=== PATIENT | male | born 1965 | race Caucasian/White ===

== ENCOUNTER 2023-04-07 18:30 | Emergency (ER) | payer MEDICARE, SELFPAY ==
[2023-04-07 18:38] VITALS: BP 100/62; PULSE 65; RESP 20; O2SAT 98; BMI 21.0
[2023-04-07 19:04] VITALS: O2SAT 97
--- NOTE | 2023-04-07 19:05 | PC.NURSE ---
pt sent for SOB, pt denies SOB and states he want to go home. pt is intoxicated and admits to drinking all day. monitor on pt and will continue to monitor
[2023-04-07 19:22] VITALS: BP 148/76; PULSE 68; O2SAT 96
--- NOTE | 2023-04-07 19:31 | XR_ITS ---
The [address] [address] Patient Name: VERONICA VARGAS MRN: [id number] date: 1965 Sex: M Assigned Patient Location: ER Current Patient Location: ED.MAIN Accession/Order Number: [id number] Exam Date: 04/07/2023 20:15 Report Date: 04/07/2023 20:52 At the request of: IVA RABAGO Procedure: XR chest 1V EXAMINATION: XR chest 1V HISTORY: Cough COMPARISON: Chest x-rays 03/22/2023 TECHNIQUE: Portable chest FINDINGS: The lung parenchyma is free of consolidation or infiltrate. No pneumothorax or pleural effusion. The cardiac, mediastinal and hilar contours are normal. The visualized osseous structures exhibit no gross acute abnormality. Patient is status post open reduction internal fixation of the left clavicle IMPRESSION: No acute cardiopulmonary abnormality. Electronically authenticated by: MAXINE SANTOS Date: 04/07/2023 20:52
--- NOTE | 2023-04-07 19:31 | ECG_ITS ---
The [facility] Test Date: 2023-04-07 Pat Name: Chente Alamo Department: Room: - Gender: Male Ehs Manager: : 1965 Requested By: INES GARCIA Order Number: [id number] Reading MD: BETSY MOSS Measurements Intervals [place] Rate: 63 P: 43 CT: 150 QRS: 44 QRSD: 82 T: 54 QT: 436 QTc: 443 Interpretive Statements 1100 Sinus rhythm 2420 RSR (QR) in lead V1/V2, consistent with right ventricular conduction delay 9130 borderline ECG No previous ECG available for comparison Electronically Signed On 04-09-2023 5:40:37 EDT by BETSY MOSS
--- NOTE | 2023-04-07 19:38 | ED.GENADUL1 ---
HPI - General Adult General Chief complaint: Alcohol Stated complaint: INTOXICATION Time Seen by Provider: 04/07/23 19:31 Source: patient Mode of arrival: ambulance Limitations: no limitations History of Present Illness HPI narrative: patient has lung mass that was found last month. His brother gave history and patient would occ speak and nod in agreement. PET scan was ordered but was delayed due to concern for TB and lab results positive for pertussis. Patient reportedly quarantined and test result will resume at the end of this week. He drinks and smokes daily. Also uses marijuana. Today he was at the bar and started drinking around 11AM. His brother was called to the Bar because he was sitting at the Bar and was corona . Brother states his BP was low. Squad called and he was transferred to the hospital. He is now here and brother admits he does look better. Patient states he feels ok and wants to go home. He is denying chest pain, abdominal pain , fever or nausea Related Data Home Medications Medication Instructions Recorded Confirmed albuterol sulfate 90 mcg/actuation 2 inh inhalation Q4H 04/07/23 04/07/23 aerosol inhaler Allergies Allergy/AdvReac Type Severity Reaction Status Date / Time No Known Drug Allergies Allergy Verified 04/07/23 18:37 Review of Systems ROS Status of ROS 10 or more systems reviewed and unremarkable except as noted in history and below [facility] Medical History (Updated 04/07/23 @ 22:06 by Wilfredo Frias MD) Social History Smoking status: Heavy tobacco smoker Exam Constitutional Vital Signs - 24 hr 04/07/23 18:38 04/07/23 19:04 04/07/23 19:22 Pulse Rate 68 Pulse Rate [Monitor] 65 Pulse Rate [orthostatic lying] Pulse Rate [orthostatic sitting] Pulse Rate [orthostatic standing] Respiratory Rate 20 Blood Pressure 148/76 H Blood Pressure [Right Arm] 100/62 Blood Pressure [orthostatic lying] Blood Pressure [orthostatic sitting] Blood Pressure [orthostatic standing] Pulse Oximetry 98 97 96 Oxygen Delivery Method Room Air Room Air 04/07/23 20:27 04/07/23 20:28 04/07/23 21:44 Pulse Rate 68 Pulse Rate [Monitor] Pulse Rate [orthostatic lying] 74 Pulse Rate [orthostatic sitting] 84 Pulse Rate [orthostatic standing] 88 Respiratory Rate 16 Blood Pressure 125/84 H Blood Pressure [Right Arm] Blood Pressure [orthostatic lying] 129/68 H Blood Pressure [orthostatic sitting] 116/88 H Blood Pressure [orthostatic standing] 129/82 H Pulse Oximetry 98 98 Oxygen Delivery Method Room Air [facility] Common normals: normocephalic and head/scalp atraumatic Face and sinus: normal facial exam Eye Common normals: PERRL, EOMs intact bilaterally and conjunctivae normal Neck & C-Spine Common normals: full ROM and supple Chest Other: diminished breath sounds. Few scattered rhonchii Respiratory Common normals: normal respiratory effort and no use of accessory muscles Cardio Common normals: no JVD, regular rate, regular rhythm, S1 normal heart sound and S2 normal heart sound GI Common normals: Normal to inspection, nondistended, normoactive bowel sounds present Palpation: hepatomegaly Common normals: no CVA tenderness Back & Pelvis Common normals: no CVA tenderness, thoracic and lumbar spine normal to inspection and no thoracic nor lumbar tenderness Extremity Common normals: normal to inspection and no joint enlargement Other: trace ankle edema Neuro Common normals: oriented x3, CN's II-XII intact bilaterally, moves all extremities, no focal motor deficits and no sensory deficits noted Psych Appearance: grossly normal and well kempt Course Vital Signs Vital signs: Vital Signs Pulse Rate 65 04/07/23 18:38 Respiratory Rate 20 04/07/23 18:38 Blood Pressure 100/62 04/07/23 18:38 Pulse Oximetry 98 04/07/23 18:38 Oxygen Delivery Method Room Air 04/07/23 18:38 Pulse Rate 74 04/07/23 21:44 Respiratory Rate 16 04/07/23 20:27 Blood Pressure 129/68 H 04/07/23 21:44 Pulse Oximetry 98 04/07/23 20:28 Oxygen Delivery Method Room Air 04/07/23 20:28 Medical Decision Making MDM Narrative Medical decision making narrative: alcoholic. Sitting at the Bar on the bar stool. Brother states his BP was low at the bar. Arrives to the ER with normal BP. He states he feels well and wants to leave. IV was established by Squad but once he got here it was not functioning and he refused to have one re started. HIs orthostatics revealed tachycardia with normal BP. His labs reveal anemia with Hgb 8.9. MCV is normal. No history of GI bleed. Patient is standing in his room with very steady gait eager to go home. His brother is here to take him home. Discharged and encouraged to drink fluid and to follow up with his doctor Lab Data Labs: Lab Results 04/07/23 04/07/23 Range/Units 19:47 20:46 WBC 6.0 (4.0-11.0) 10^3/uL RBC 3.38 L (4.70-6.10) 10^6/uL Hgb 8.9 L (14.0-18.0) g/dL Hct 29.5 L (42.0-54.0) % MCV 87.3 (80.0-94.0) fL MCH 26.3 (25.9-34.0) pg MCHC 30.2 (29.9-35.2) g/dL RDW 16.9 H (11.0-15.0) % Plt Count 613 H (150-450) 10^3/uL MPV 9.6 (9.5-13.5) fL Neut % (Auto) 72.5 (43.0-75.0) % Lymph % (Auto) 9.7 L (20.5-60.0) % [place] % (Auto) 11.5 (1.7-12.0) % Eos % (Auto) 5.2 (0.9-7.0) % Baso % (Auto) 0.8 (0.2-2.0) % Neut # (Auto) 4.3 (1.4-6.5) 10^3/uL Lymph # (Auto) 0.6 L (1.2-3.8) 10^3/uL [place] # (Auto) 0.7 (0.3-0.8) 10^3/uL Eos # (Auto) 0.3 (0.0-0.7) 10^3/uL Baso # (Auto) 0.1 (0.0-0.1) 10^3/uL Sodium 136 (136-145) mmol/L Potassium 3.8 (3.5-5.1) mmol/L Chloride 101 (98-107) mmol/L Carbon Dioxide 22.8 (21.0-32.0) mmol/L Anion Gap 16.0 BUN 10.0 (7.0-18.0) mg/dL Creatinine 0.68 L (0.70-1.30) mg/dL Est GFR ( Amer) >60 (>=60) Est GFR (Non-Af Amer) >60 (>=60) BUN/Creatinine Ratio 14.7 Glucose 93 (74-106) mg/dL Calcium 8.0 L (8.5-10.1) mg/dL Magnesium 2.0 (1.8-2.4) mg/dL Total Bilirubin 0.1 L (0.2-1.0) mg/dL AST 22 (15-37) U/L ALT 23 (16-63) U/L Troponin I High Sens 6.9 (4.0-76.1) pg/mL Total Protein 7.1 (6.4-8.2) g/dL Albumin 3.2 L (3.4-5.0) g/dL Globulin 3.9 g/dL Albumin/Globulin Ratio 0.8 Urine Color Lt. yellow (YELLOW) Urine Clarity Clear (CLEAR) Urine pH 5.5 (5.0-9.0) Ur Specific [place] 1.025 (1.005-1.025) Urine Protein Negative (NEG/TRACE) mg/dL Urine Glucose (UA) Negative (NEGATIVE) mg/dL Urine Ketones Negative (NEGATIVE) mg/dL Urine Occult Blood Negative (NEGATIVE) Urine Nitrite Negative (NEGATIVE) Urine Bilirubin Negative (NEGATIVE) Urine Urobilinogen 0.2 (0.2-1.0) EU/dL Ur Leukocyte Esterase Negative (NEGATIVE) Urine RBC 0-2 (0-2) #/HPF Urine WBC None seen (NONE SEEN) #/HPF Ur Squamous Epith Cells None seen (NONE/RARE) #/LPF Discharge Plan Discharge Chief Complaint: Alcohol Clinical Impression: Acute dehydration, Alcoholic intoxication, Anemia, Malnutrition Patient Disposition: Home, Self-Care Prescriptions / Home Meds: No Action albuterol sulfate 90 mcg/actuation HFA aerosol inhaler 2 inh INHALATION Q4H Instructions: Dehydration (ED), Abuse of Alcohol (ED), Anemia (ED) Stand Alone Forms: Portal Instructions Referrals: INES GARCIA [Primary Care Provider] - 1 week Follow Up Appointments: follow up with your doctor next week to recheck your lab test and monitor your anemia
[2023-04-07 20:01] LABS: Basophils Absolute Auto 0.1 10^3/uL (0.0-0.1); Basophils Percent Auto 0.8 % (0.2-2.0); Eosinophils Absolute Auto 0.3 10^3/uL (0.0-0.7); Eosinophils Percent Auto 5.2 % (0.9-7.0); Hematocrit 29.5 % (42.0-54.0); Hemoglobin 8.9 g/dL (14.0-18.0); Immature Granulocytes Abs Auto 0.02 10^3/uL (0.00-0.03); Immature Granulocytes Pct Auto 0.3 % (0.0-0.5); Lymphocytes Absolute Auto 0.6 10^3/uL (1.2-3.8); Lymphocytes Percent Auto 9.7 % (20.5-60.0); Mean Corpuscular HGB Conc 30.2 g/dL (29.9-35.2); Mean Corpuscular Hemoglobin 26.3 pg (25.9-34.0); Mean Corpuscular Volume 87.3 fL (80.0-94.0); Mean Platelet Volume 9.6 fL (9.5-13.5); Monocytes Absolute Auto 0.7 10^3/uL (0.3-0.8); Monocytes Percent Auto 11.5 % (1.7-12.0); Neutrophils Absolute Auto 4.3 10^3/uL (1.4-6.5); Neutrophils Percent Auto 72.5 % (43.0-75.0); Platelet Count 613 10^3/uL (150-450); Red Blood Count 3.38 10^6/uL (4.70-6.10); Red Cell Distribution Width 16.9 % (11.0-15.0)
[2023-04-07 20:13] LABS: Ethanol 193 mg/dL
[2023-04-07 20:14] LABS: Alanine Aminotransferase 23 U/L (16-63); Albumin Globulin Ratio 0.8; Albumin Level 3.2 g/dL (3.4-5.0); Alkaline Phosphatase 87 U/L (46-116); Aspartate Amino Transferase 22 U/L (15-37); BUN Creatinine Ratio 14.7; Bilirubin Total 0.1 mg/dL (0.2-1.0); Carbon Dioxide 22.8 mmol/L (21.0-32.0); Chloride 101 mmol/L (98-107); Estimated GFR (African America >60 (>=60); Estimated GFR (Non-African Ame >60 (>=60); Globulin 3.9 g/dL; Glucose 93 mg/dL (74-106); Potassium 3.8 mmol/L (3.5-5.1); Sodium 136 mmol/L (136-145); Total Protein 7.1 g/dL (6.4-8.2); Troponin I High Sensitivity 6.9 pg/mL (4.0-76.1)
[2023-04-07 20:27] VITALS: BP 125/84; PULSE 68; RESP 16; O2SAT 98
[2023-04-07 20:28] VITALS: O2SAT 98
[2023-04-07 21:03] LABS: Bilirubin Urine NEGATIVE (NEGATIVE); Blood Urine NEGATIVE (NEGATIVE); Clarity Urine CLEAR (CLEAR); Color Urine LT. YELLOW (YELLOW); Glucose Urine UA NEGATIVE (NEGATIVE); Ketones Urine NEGATIVE (NEGATIVE); Leukocyte Esterase Urine NEGATIVE (NEGATIVE); Nitrite Urine NEGATIVE (NEGATIVE); Protein Urine NEGATIVE (NEG/TRACE); Specific Gravity Urine 1.025 (1.005-1.025); Urobilinogen Urine 0.2 EU/dL (0.2-1.0); pH Urine 5.5 (5.0-9.0)
[2023-04-07 21:04] LABS: Bacteria Urine NONE SEEN #/HPF (NONE SEEN); Cast Seen? NONE SEEN #/LPF (NONE SEEN); Crystals Seen? None Seen #/HPF (None Seen); Mucus Urine NONE SEEN (NONE SEEN); RBC Urine 0-2 #/HPF (0-2); Squamous Epithelial Cell Urine NONE SEEN #/LPF (NONE/RARE); WBC Urine NONE SEEN #/HPF (NONE SEEN)
[2023-04-07 21:44] VITALS: BP 116/88; BP 129/68; BP 129/82; PULSE 74; PULSE 84; PULSE 88
== END 2023-04-07 22:13 | disposition home or self-care (01) ==
PROVIDERS: Emergency Provider Internal Medicine; PCP Family Medicine
DX: E86.0 Dehydration (principal); F10.129 Alcohol abuse with intoxication, unspecified; F12.90 Cannabis use, unspecified, uncomplicated; D64.9 Anemia, unspecified; E46 Unspecified protein-calorie malnutrition; F17.210 Nicotine dependence, cigarettes, uncomplicated
CPT/HCPCS: 36415; 71045; 80053; 80320; 81001; 83735; 84484; 85025; 93005; 99285

== ENCOUNTER 2023-07-08 14:31 | Emergency (ER) | payer MEDICARE, SELFPAY ==
[2023-07-08 14:32] VITALS: BP 167/91; PULSE 78; RESP 18; TEMP 36.9; O2SAT 97; BMI 21.1
--- NOTE | 2023-07-08 14:51 | ED.EPISTAXI1 ---
HPI - Epistaxis General Chief Complaint: Epistaxis Stated Complaint: NOSE BLEED Time Seen by Provider: 07/08/23 14:35 Source: patient Mode of arrival: ambulance Limitations: no limitations History of Present Illness HPI Narrative: patient is a 58-year-old male presents to the Emergency Room for evaluation of nosebleed. Patient states he has had recurrent nosebleed out of the right right nostril for the past two days. Symptoms 1st yesterday that resolved with direct pressure, again this morning that resolved with pressure. Patient states the nose was bleeding for approximately forty minutes despite holding pressure when he called EMS. EMS applied a nasal clamp and the patient's bleeding resolved. He denies any current symptoms of feeling lightheaded or dizzy. States he felt slightly lightheaded while the bleeding was occurring but those symptoms have resolved. He denies any nasal trauma or injury. He denies any chest pain or shortness of breath, notes he lives by himself and called EMS when the bleeding did not stop. Patient appears in no distress on arrival. Review of past medical records note history of anemia Location: Yes right nares Onset/current episode: Yes minute(s) (40) Duration: Yes now resolved Pertinent past history: Yes hypertension and No history of heriditary bleeding disorder Context: Yes digital trauma, No warfarin use, No other anticoagulant use and No facial injury Associated symptoms: No fever Treatment prior to arrival: Yes nose pinching and Yes nasal clamp Related Data Home Medications Medication Instructions Recorded Confirmed albuterol sulfate 90 mcg/actuation 2 inh inhalation Q4H 04/07/23 04/07/23 aerosol inhaler Allergies Allergy/AdvReac Type Severity Reaction Status Date / Time No Known Drug Allergies Allergy Verified 04/07/23 18:37 Review of Systems ROS Constitutional Denies: fever, chills or change in weight Eyes Denies: change in vision Ears, nose, mouth, and throat Denies: throat pain or neck pain Cardiovascular Denies: chest pain Respiratory Denies: shortness of breath Gastrointestinal Denies: abdominal pain or nausea Musculoskeletal Denies: back pain or neck pain Integumentary/Breast Denies: rash Neurological Denies: headache Hematologic/Lymphatic Denies: easy bruising, easy bleeding or enlarged lymph nodes [facility] Medical History (Updated 07/08/23 @ 15:41 by WILLIAMS Gonzalez) Social History Smoking status: Heavy tobacco smoker Exam Narrative Exam Narrative: Nurses notes and vital signs reviewed and patient is not hypoxic. General: The patient appears well and in no apparent distress. Patient is resting comfortably on cart. Skin: Warm, dry, no pallor noted.no evidence of excessive bruising or bleeding Head: Normocephalic, atraumatic Neck: Supple, trachea mid-line, no tenderness, no lymphadenopathy Eye: Pupils are equal, round and reactive to light, EOMI Ears, Nose, Mouth, and Throat: TM are clear, normal light reflex, oral mucosa is moist, no posterior oropharynx erythema or hypertrophy, uvula is mid-line, no blood in the posterior pharynx, left nares with minimal dried blood, right Nares patient has evidence of abrasion on the anterior aspect of the distal nasal septum. Concerning for digital trauma. No active bleeding at this time. Cardiovascular: Regular Rate and Rhythm Respiratory: Patient is in no distress, no accessory muscle use, lungs are clear to auscultation, no wheezing, rales or rhonchi. Musculoskeletal: normal ROM, no tenderness, no swelling GI: Normal bowel sounds, no tenderness to palpation, no masses appreciated. No rebound, guarding, or rigidity noted. Neurological: A&O x4 Psychiatric: Cooperative Constitutional Vital Signs, click to edit/add: Last Vital Signs Temp 98.4 F 07/08/23 14:32 Pulse 78 07/08/23 15:18 Resp 20 07/08/23 15:18 BP 152/78 H 07/08/23 15:18 Pulse Ox 97 07/08/23 15:18 O2 Del Method Room Air 07/08/23 15:18 Course Vital Signs Vital signs: Vital Signs Temperature 98.4 F 07/08/23 14:32 Pulse Rate 78 07/08/23 14:32 Respiratory Rate 18 07/08/23 14:32 Blood Pressure 167/91 H 07/08/23 14:32 Pulse Oximetry 97 07/08/23 14:32 Oxygen Delivery Method Room Air 07/08/23 14:32 Temperature 98.4 F 07/08/23 14:32 Pulse Rate 78 07/08/23 15:18 Respiratory Rate 20 07/08/23 15:18 Blood Pressure 152/78 H 07/08/23 15:18 Pulse Oximetry 97 07/08/23 15:18 Oxygen Delivery Method Room Air 07/08/23 15:18 MDM - Epistaxis MDM Narrative Medical decision making narrative: patient reports recurrent nosebleed over the past forty-eight hours on the right nares . Denies injury. Possible for digital trauma with abrasion noted. No active bleeding at this time, nasal clip will be removed, Afrin applied two puff in right nare with observation and check cbc given history of anemia. patient was served for over an hour after direct pressure is applied with no return of bleeding. Patient reports feeling asymptomatic, recommend to avoid any digital trauma we discussed at length patient's alcohol abuse and tobacco abuse at bedside, history of anemia. Patient notes his family doctor recently retired and he has a new physician that he has not yet been in to see. He's been recommended to detox in the past but states he is not ready. Patient admits to drinking twelve pack of beer a day. We discussed his epistaxis. One to return if symptoms recur and how to hold direct pressure with use of Afrin. Patient agrees to return if symptoms worsen or new symptoms develop. He will contact his family doctor to set up an appointment. Patient's family present at bedside encouraging patient to help get better health. The patient is to followup with primary care physician in next 2-3 days or to return to the emergency department should any of the signs or symptoms worsen or new symptoms develop. Patient had questions answered. The patient agrees with the following Diagnosis and Treatment plan and the patient will be discharged home. Differential Diagnosis Differential diagnosis: Likely anterior epistaxis Medical Records Attestation: I reviewed the patient's medical records. Lab Data Attestation: I reviewed the patient's lab results. Labs: Lab Results 07/08/23 Range/Units 15:00 WBC 6.2 (4.0-11.0) 10^3/uL RBC 4.21 L (4.70-6.10) 10^6/uL Hgb 9.8 L (14.0-18.0) g/dL Hct 32.8 L (42.0-54.0) % MCV 77.9 L (80.0-94.0) fL MCH 23.3 L (25.9-34.0) pg MCHC 29.9 (29.9-35.2) g/dL RDW 23.2 H (11.0-15.0) % Plt Count 643 H (150-450) 10^3/uL MPV 9.4 L (9.5-13.5) fL Neut % (Auto) 67.3 (43.0-75.0) % Lymph % (Auto) 11.8 L (20.5-60.0) % [place] % (Auto) 17.0 H (1.7-12.0) % Eos % (Auto) 2.8 (0.9-7.0) % Baso % (Auto) 0.8 (0.2-2.0) % Neut # (Auto) 4.2 (1.4-6.5) 10^3/uL Lymph # (Auto) 0.7 L (1.2-3.8) 10^3/uL [place] # (Auto) 1.1 H (0.3-0.8) 10^3/uL Eos # (Auto) 0.2 (0.0-0.7) 10^3/uL Baso # (Auto) 0.1 (0.0-0.1) 10^3/uL Abs Immat Gran (auto) 0.02 (0.00-0.03) 10^3/uL Imm/Tot Granulo (auto) 0.3 (0.0-0.5) % Smoking Cessation Time spent discussing smoking cessation with patient: 3 to 10 minutes Patient Acknowledges Need for Cessation: Yes Discharge Plan Discharge Chief Complaint: Epistaxis Clinical Impression: Epistaxis, Anemia Patient Disposition: Home, Self-Care Time of Disposition Decision: 15:39 Condition: Good Prescriptions / Home Meds: No Action albuterol sulfate 90 mcg/actuation HFA aerosol inhaler 2 inh INHALATION Q4H Instructions: Nosebleed (ED), Anemia (ED) Stand Alone Forms: Portal Instructions Referrals: INES GARCIA [Primary Care Provider] - As soon as possible Sam Wilson MD [Physician] - As soon as possible
[2023-07-08 15:08] LABS: Basophils Absolute Auto 0.1 10^3/uL (0.0-0.1); Basophils Percent Auto 0.8 % (0.2-2.0); Eosinophils Absolute Auto 0.2 10^3/uL (0.0-0.7); Eosinophils Percent Auto 2.8 % (0.9-7.0); Hematocrit 32.8 % (42.0-54.0); Hemoglobin 9.8 g/dL (14.0-18.0); Immature Granulocytes Abs Auto 0.02 10^3/uL (0.00-0.03); Immature Granulocytes Pct Auto 0.3 % (0.0-0.5); Lymphocytes Absolute Auto 0.7 10^3/uL (1.2-3.8); Lymphocytes Percent Auto 11.8 % (20.5-60.0); Mean Corpuscular HGB Conc 29.9 g/dL (29.9-35.2); Mean Corpuscular Hemoglobin 23.3 pg (25.9-34.0); Mean Corpuscular Volume 77.9 fL (80.0-94.0); Mean Platelet Volume 9.4 fL (9.5-13.5); Monocytes Absolute Auto 1.1 10^3/uL (0.3-0.8); Neutrophils Absolute Auto 4.2 10^3/uL (1.4-6.5); Neutrophils Percent Auto 67.3 % (43.0-75.0); Platelet Count 643 10^3/uL (150-450); Red Blood Count 4.21 10^6/uL (4.70-6.10); Red Cell Distribution Width 23.2 % (11.0-15.0); White Blood Count 6.2 10^3/uL (4.0-11.0)
[2023-07-08 15:18] VITALS: BP 152/78; PULSE 78; RESP 20; O2SAT 97
[2023-07-08 16:15] VITALS: BP 139/69; PULSE 73; RESP 20; O2SAT 97
== END 2023-07-08 16:17 | disposition home or self-care (01) ==
PROVIDERS: Personal Emergency Response Attendant; Emergency Provider Emergency Medicine Emergency Medical Services; PCP Family Medicine
DX: R04.0 Epistaxis (principal); D64.9 Anemia, unspecified; I10 Essential (primary) hypertension; F17.210 Nicotine dependence, cigarettes, uncomplicated; F10.10 Alcohol abuse, uncomplicated
CPT/HCPCS: 36415; 85025; 99283

== ENCOUNTER 2024-07-04 14:31 | Emergency (ER) | payer MEDICARE, SELFPAY ==
[2024-07-04 14:36] VITALS: BP 162/94; PULSE 83; TEMP 36.5; O2SAT 96; BMI 21.9
--- NOTE | 2024-07-04 14:45 | XR_ITS ---
[address] [address] Patient Name: VERONICA VARGAS MRN: [id number] date: 1965 Sex: M Assigned Patient Location: ER Current Patient Location: ER Accession/Order Number: [id number] Exam Date: 07/04/2024 15:05 Report Date: 07/04/2024 15:24 At the request of: SAMUEL RIVERA Procedure: XR wrist LT min 3V EXAM: XR wrist LT min 3V, XR forearm LT 2V HISTORY: Injury COMPARISON: None. FINDINGS/IMPRESSION: 1. Minimally displaced transverse fracture of the distal radius. Mild posterior displacement measuring 2 mm. 2. Scapholunate and lunotriquetral intervals are maintained. 3. Normal alignment of the elbow joint. No elbow joint effusion. 4. No significant degeneration of the elbow joint or wrist. Electronically authenticated by: NADIYA COHN Date: 07/04/2024 15:24
--- NOTE | 2024-07-04 14:45 | XR_ITS ---
The [address] [address] Patient Name: VERONICA VARGAS MRN: [id number] date: 1965 Sex: M Assigned Patient Location: ER Current Patient Location: ER Accession/Order Number: [id number] Exam Date: 07/04/2024 15:05 Report Date: 07/04/2024 15:24 At the request of: SAMUEL RIVERA Procedure: XR forearm LT 2V EXAM: XR wrist LT min 3V, XR forearm LT 2V HISTORY: Injury COMPARISON: None. FINDINGS/IMPRESSION: 1. Minimally displaced transverse fracture of the distal radius. Mild posterior displacement measuring 2 mm. 2. Scapholunate and lunotriquetral intervals are maintained. 3. Normal alignment of the elbow joint. No elbow joint effusion. 4. No significant degeneration of the elbow joint or wrist. Electronically authenticated by: NADIYA COHN Date: 07/04/2024 15:24
--- NOTE | 2024-07-04 14:48 | ED.UPPEXIN1 ---
HPI HPI - Extremity Injury (Upper) General Chief Complaint: Extremity Injury, Upper Stated Complaint: UPPER EXTREMITY PAIN Time Seen by Provider: 07/04/24 14:45 Source: patient Mode of arrival: walk-in History of Present Illness HPI narrative: This patient is here with an injury to his left wrist and forearm. He admits to substantial use of alcohol last night. He does not really know much of the other details. He has had left shoulder surgery many years ago but did not injure his shoulder last night. He had no other collateral pain or discomfort. When I ask him to point to the area injury he points to his left wrist area. On examination Related Data Allergies Allergy/AdvReac Type Severity Reaction Status Date / Time No Known Drug Allergies Allergy Verified 04/07/23 18:37 Opioid HPI Opioid Management Most Recent Pain and Opioid Data: Last Pain Scale 0 07/08/23 14:48 PFSH [facility] Medical History (Updated 07/04/24 @ 15:31 by Arnold Peck MD) Mass of right lung ?R91.8 - Other nonspecific abnormal finding of lung field (ICD-10) COPD (chronic obstructive pulmonary disease) ?J44.9 - Chronic obstructive pulmonary disease, unspecified (ICD-10) Social History Smoking status: Heavy tobacco smoker Exam Narrative Exam Narrative: On examination awake alert oriented x 3 fully cooperative. He does have soft tissue swelling noted over the left wrist. Does not have any pain in the shoulder elbow. Some discomfort in the forearm. No deformity or discomfort in the hand itself. The rest of his head and neck structures upper and lower extremities show no other collateral damage or complaints. Constitutional Vital Signs, click to edit/add: Last Vital Signs Temp 97.7 F 07/04/24 14:36 Pulse 83 07/04/24 14:36 Resp 20 07/04/24 14:36 BP 162/94 H 07/04/24 14:36 Pulse Ox 96 07/04/24 14:36 O2 Del Method Room Air 07/04/24 14:36 Course Vital Signs Vital signs: Vital Signs Temperature 97.7 F 07/04/24 14:36 Pulse Rate 83 07/04/24 14:36 Respiratory Rate 20 07/04/24 14:36 Blood Pressure 162/94 H 07/04/24 14:36 Pulse Oximetry 96 07/04/24 14:36 Oxygen Delivery Method Room Air 07/04/24 14:36 Temperature 97.7 F 07/04/24 14:36 Pulse Rate 83 07/04/24 14:36 Respiratory Rate 20 07/04/24 14:36 Blood Pressure 162/94 H 07/04/24 14:36 Pulse Oximetry 96 07/04/24 14:36 Oxygen Delivery Method Room Air 07/04/24 14:36 MDM - Extremity Injury (Upper) MDM Narrative Medical decision making narrative: Final x-ray report is pending but I suspect there is a nondisplaced fracture of the distal radius. We will place him in a immobilizing cock up splint have him follow-up with our orthopedist. Discharge Plan Discharge Stand Alone Forms: Work/School Release, Portal Instructions Chief Complaint: Extremity Injury, Upper Clinical Impression: Fracture of wrist Patient Disposition: Home, Self-Care Time of Disposition Decision: 15:30 Print Language: Estonian Additional Instructions: Ice for 40 hours/wear splint until followed up with orthopedist Dr. Oliveira/Torrosamaria for pain Referrals: INES GARCIA [Primary Care Provider] - 1 week
== END 2024-07-04 16:02 | disposition home or self-care (01) ==
PROVIDERS: Emergency Provider Emergency Medicine Emergency Medical Services; PCP Family Medicine
DX: S52.502A Unspecified fracture of the lower end of left radius, initial encounter for closed fracture (principal); X58.XXXA Exposure to other specified factors, initial encounter; F17.200 Nicotine dependence, unspecified, uncomplicated
CPT/HCPCS: 73090; 73110; 99283

== ENCOUNTER 2025-09-26 12:50 | Emergency (ER) | payer MEDICARE, SELFPAY ==
--- OUTSIDE RECORDS SUMMARY | 2024-07-13 06:00 | XMS_ITS ---
Author Organization [facility] Address [address] [place] [address] Care Team Providers Care Family Service Assistant Name Role Phone Ruddy Yoder DO Primary Care Provider Raza Zabala Unavailable [phone] REASON FOR VISIT TB ER f/u LT wrist fx Encounters Encounter Location Date Provider Diagnosis [facility] Office [address] [place] [address] [place] [address] 07/13/2024 Raza Oliveira Plan Of Treatment No Information Progress Notes * VERONICA VARGAS GDOB:[birth year] (60 yo M)Acc No.[id number]:07/13/2024 Patient:?VERONICA VARGAS :?Raza Oliveira, MDDOB:1965???Age:59 Y ???Sex:MaleDate:07/13/2024hone:[phone]:[address], [id number]:Ruddy Yoder DO Subjective: * Chief Complaints: * 1 . [facility] ER f/u LT wrist fx. * Medical History: Objective: * Vitals: Assessment: Plan: * Treatment: Forms: * Images: * Electronic signature of Raza Oliveira MD on 09/26/2025 at 02:42 PM ESTSign off status: Pending * Provider: Luci Oliveira MD Date: 0 07/13/2024 Generated for Printing/Faxing/eTransmitting on:?09/26/2025 02:42 PM EST
--- OUTSIDE RECORDS SUMMARY | 2024-08-19 09:15 | XMS_ITS ---
Author Organization [facility] Address [address] [place] [address] Care Team Providers Care Shellfish Grower Name Role Phone Ruddy Yoder DO Primary Care Provider Raza Zabala Unavailable [phone] REASON FOR VISIT lt distal radius fx, 3 week ck Encounters Encounter Location Date Provider Diagnosis [facility] [facility] [address] [address] 08/19/2024 Raza Oliveira Plan Of Treatment Pending Test Test Name Order Date SCC- WRIST 3 VIEW LEFT [id number] 08/19/2024 Progress Notes * VERONICA VARGAS GDOB:[birth year] (60 yo M)Acc No.[id number]:08/19/2024 Patient:?ALICIAVERONICA HORN :?Raza Oliveira, MDDOB:1965???Age:59 Y ???Sex:MaleDate:08/19/2024hone:[phone]:[address], [id number]:Ruddy Yoder DO Subjective: * Chief Complaints: * 1 . Lt distal radius fx, 3 week ck. * Medical History: Objective: * Vitals: Assessment: Plan: * Treatment: ?Imaging: SCC- WRIST 3 VIEW LEFT [id number] * Procedure Codes: 7 3110 X-ray Wrist, 3 view Forms: * Images: * Electronic signature of Raza Oliveira MD on 09/26/2025 at 02:42 PM ESTSign off status: Pending * Provider: Luci Oliveira MD Date: 1 Generated for Printing/Faxing/eTransmitting on:?09/26/2025 02:42 PM EST
[2025-09-26 13:12] VITALS: BP 129/89; PULSE 102; TEMP 36.9; O2SAT 95; BMI 20.4
--- NOTE | 2025-09-26 13:17 | XR_ITS ---
The [address] [address] Patient Name: VERONICA VARGAS MRN: [id number] date: 1965 Sex: M Assigned Patient Location: ED.MAIN Current Patient Location: ER Accession/Order Number: [id number] Exam Date: 09/26/2025 14:00 Report Date: 09/26/2025 14:22 At the request of: OSMEL MENDEZ MD Procedure: XR shoulder RT min 2V RIGHT SHOULDER - - 2 views CLINICAL HISTORY: fall COMPARISON: None FINDINGS: Mildly displaced fracture of the right humeral neck. Mild degenerative changes involving the AC joint. XR/XR shoulder RT min 2V IMPRESSION: MILDLY DISPLACED FRACTURE INVOLVING THE RIGHT HUMERAL NECK. Impression dictated by: Ricardo Baer Jr. DMelecioOMelecio 09/26/2025 2:22 PM Dictation Location: [place] [address] Electronically authenticated by: [id number] Y Date: 09/26/2025 14:22
--- NOTE | 2025-09-26 14:14 | XR_ITS ---
The [address] [address] Patient Name: VERONICA VARGAS MRN: [id number] date: 1965 Sex: M Assigned Patient Location: ED.MAIN Current Patient Location: ER Accession/Order Number: [id number] Exam Date: 09/26/2025 16:00 Report Date: 09/26/2025 16:30 At the request of: OSMEL MENDEZ MD Procedure: XR forearm RT 2V RIGHT ELBOW - 2 views, right forearm 2 views right humerus 2 views CLINICAL HISTORY: Fall with right shoulder elbow and forearm pain. COMPARISON: None FINDINGS: Right elbow:Positioning is suboptimal. No elbow joint effusion. No acute bony process is seen. Right forearm: Suboptimal positioning. No focal soft tissue abnormality. No acute bony process is seen. Right humerus: Mildly displaced fracture involving the right humeral neck. XR/XR humerus RT IMPRESSION: MILDLY DISPLACED FRACTURE INVOLVING THE RIGHT HUMERAL NECK. NO DEFINITIVE FRACTURE SEEN INVOLVING THE RIGHT ELBOW OR FOREARM. Impression dictated by: Ricardo Baer Jr. DMelecioOMelecio 09/26/2025 4:30 PM Dictation Location: [email or web address] Electronically authenticated by: [id number] Y Date: 09/26/2025 16:30
--- NOTE | 2025-09-26 14:14 | XR_ITS ---
The [address] [address] Patient Name: VERONICA VARGAS MRN: [id number] date: 1965 Sex: M Assigned Patient Location: ER Current Patient Location: ER Accession/Order Number: [id number] Exam Date: 09/26/2025 16:00 Report Date: 09/26/2025 16:30 At the request of: OSMEL MENDEZ MD Procedure: XR forearm RT 2V RIGHT ELBOW - 2 views, right forearm 2 views right humerus 2 views CLINICAL HISTORY: Fall with right shoulder elbow and forearm pain. COMPARISON: None FINDINGS: Right elbow:Positioning is suboptimal. No elbow joint effusion. No acute bony process is seen. Right forearm: Suboptimal positioning. No focal soft tissue abnormality. No acute bony process is seen. Right humerus: Mildly displaced fracture involving the right humeral neck. XR/XR elbow RT 2V IMPRESSION: MILDLY DISPLACED FRACTURE INVOLVING THE RIGHT HUMERAL NECK. NO DEFINITIVE FRACTURE SEEN INVOLVING THE RIGHT ELBOW OR FOREARM. Impression dictated by: Manav Huynh Jr.OMelecio 09/26/2025 4:30 PM Dictation Location: [facility] Electronically authenticated by: [id number] Y Date: 09/26/2025 16:30
--- NOTE | 2025-09-26 14:14 | XR_ITS ---
The [address] [address] Patient Name: VERONICA AVRGAS MRN: [id number] date: 1965 Sex: M Assigned Patient Location: ED.MAIN Current Patient Location: ER Accession/Order Number: [id number] Exam Date: 09/26/2025 16:30 Report Date: 09/26/2025 16:30 At the request of: OSMEL MENDEZ MD Procedure: XR forearm RT 2V RIGHT ELBOW - 2 views, right forearm 2 views right humerus 2 views CLINICAL HISTORY: Fall with right shoulder elbow and forearm pain. COMPARISON: None FINDINGS: Right elbow:Positioning is suboptimal. No elbow joint effusion. No acute bony process is seen. Right forearm: Suboptimal positioning. No focal soft tissue abnormality. No acute bony process is seen. Right humerus: Mildly displaced fracture involving the right humeral neck. XR/XR forearm RT 2V IMPRESSION: MILDLY DISPLACED FRACTURE INVOLVING THE RIGHT HUMERAL NECK. NO DEFINITIVE FRACTURE SEEN INVOLVING THE RIGHT ELBOW OR FOREARM. Impression dictated by: Ricardo Baer Jr., D.O. 09/26/2025 4:30 PM Dictation Location: [place] [address] Electronically authenticated by: [id number] Y Date: 09/26/2025 16:30
--- OUTSIDE RECORDS SUMMARY | 2025-09-26 14:42 | XMS_ITS | Clinical Summary ---
Author Organization [facility] Address [address] [place] [address] Care Team Providers Care Stress Engineer Name Role Phone Unavailable Primary Care Provider Unavailabl e Social History Tobacco UseTypesPacks/DayYears UsedDateSmoking Tobacco: Never AssessedSex and Gender InformationValueDate RecordedSex Assigned at BirthNot on fileLegal Sex Male01/16/2023 11:33 PM EDTGender IdentityNot on fileSexual OrientationNot on file Last Filed Vital Signs Vital SignReadingTime TakenCommentsBlood Pressure--Pulse--Temperature-- Respiratory Rate--Oxygen Saturation--Inhaled Oxygen Concentration--Kajzeb88.2 kg (126 lb)01/09/2022 12:00 PM EOSNvyhpx531.2 cm (5' 7 )01/09/2022 12:00 PM ESTBody Mass Index19.7301/09/2022 12:00 PM EST Plan of Treatment Not on file
--- OUTSIDE RECORDS SUMMARY | 2025-09-26 14:42 | XMS_ITS | CCD ---
Author Organization [facility] Care Team Providers Care Bi Lead Name Role Phone Guillermina Clark Unavailable SAMSA ., ROSA MARIA Admitting Unavailable SAMSA ., ROSA MARIA Attending Unavailable WALKER ., DR ELVIRA Borges Primary Care Unavailable SAMSA ., ROSA MARIA Consulting Unavailable WALKER ., DR ELVIRA Borges Admitting Unavailable WALKER ., DR ELVIRA Borges Attending Unavailable WALKER ., DR ELVIRA Borges Consulting Unavailable WALKER ., DR ELVIRA Borges Primary Care Unavailable ZIEBTJ, DR BRANDY Bailey Consulting Unavailable WALKER ., DR ELVIRA Borges Admitting Unavailable WALKER ., DR ELVIRA Borges Attending Unavailable WALKER ., DR ELVIRA Borges Primary Care Unavailable OVIDIO ., TASHA Admitting Unavailable WALKER ., DR ELVIRA Borges Primary Care Unavailable OVIDIO ., TASHA Attending Unavailable OVIDIO ., TASHA Consulting Unavailable WALKER ., DR ELVIRA Borges Admitting Unavailable WALKER ., DR ELVIRA Borges Attending Unavailable WALKER ., DR ELVIRA Borges Consulting Unavailable WALKER ., DR ELVIRA Borges Primary Care Unavailable SAMSA ., ROSA MARIA Attending Unavailable SAMSA ., ROSA MARIA Admitting Unavailable MELIA, DR BRANDY Bailey Consulting Unavailable WALKER ., DR ELVIRA Borges Primary Care Unavailable SAMSA ., ROSA MARIA Consulting Unavailable Stefano NUNEZ Attending Unavailable ELVIRA WALKER Attending Unavailable Trinity Hull Attending Unavailable Trinity Hull Referring Unavailable Stefano NUNEZ Attending Unavailable Allergies Allergy ClassificationReported Allergen(s)Allergy TypeDate of OnsetReaction(s) Facility (1 source)No Known Medication Allergies; Translations: [No Known Medication Allergies]Propensity to adverse reactions (disorder)[facility] Repository Medications Current Medications MedicationDrug Class(es)DatesSig (Normalized)Sig (Original)[id number] 200 actuat albuterol 0.09 mg/actuat metered dose inhaler (1 source)beta2-Adrenergic AgonistStart: 73-44-6069ikzs 2 puff(s) by inhalation four times daily as neededAlbuterol Sulfate HFA 108 (90 Base) MCG/ACT 2 puffs Inhalation 4 times a day prn Nov, Activeazithromycin 250 mg oral tablet (1 source)Macrolide AntimicrobialStart: 54-68-2177Tltqhbofvbqr 250 MG 2 tablet on the first day, then 1 tablet daily for 4 days Orally Once a day for5 day(s) Nov, Activebenzonatate 100 mg oral capsule (1 source)Non-narcotic AntitussiveStart: 35-70-7211svll 1 capsule by mouth every eight hoursTessalon Perles 100 MG 1 capsule as needed Orally Three times a day for 10 day(s) Nov, ActivepredniSONE 20 mg oral tablet (1 source)Start: 20-26-1774uohy 1 tablet by mouth every twelve hourspredniSONE 20 MG 1 tablet Orally 2 times a day for 5 day(s) Nov, Active Problems Active Problems Problem ClassificationProblemDateDocumented DateEpisodic/ChronicAllergic reactions (1 source)Dermatitis, unspecified; Translations: [DERMATITIS UNSPECIFIED]Onset: 14-71-2943LlqpczwsZtrgta (1 source)Unspecified asthma with status asthmaticus; Translations: [UNS ASTHMA W/STATUS ASTHMATICUS]Onset: 96-80-6594KdclaelIipdontw of urinary tract (1 source)Personal history of urinary calculi; Translations: [PERSONAL HISTORY OF URINARY CALCULI]Onset: 30-23-4206KmmkpgrrAlogawt obstructive pulmonary disease and bronchiectasis (4 sources)Chronic obstructive pulmonary disease, unspecified; Translations: [COPD UNSPECIFIED]Onset: 79-79-6525OeastphZtqcoyk obstructive pulmonary disease and bronchiectasis (1 source)Bronchitis, not specified as acute or chronicEpisodicDeficiency and other anemia (1 source)Anemia, unspecified; Translations: [ANEMIA UNSPECIFIED]Onset: 82-92-7120RbxzvjgvEcrap aftercare (1 source)Other terminal worker (current) drug therapy; Translations: [OTH RETIREMENT CURRENT DRUG THERAPY]Onset: 06-49-9128VggnrcwjKfocv lower respiratory disease (4 sources)Solitary pulmonary nodule; Translations: [SOLITARY PULMONARY NODULE] Onset: 12-10-2756SjsrtozyGvaqk lower respiratory disease (1 source)Shortness of breath; Translations: [SHORTNESS OF BREATH]Onset: 72-52-0662OyzpzckpCdzid skin disorders (3 sources)Rash and other nonspecific skin eruption; Translations: [RASH OTH NONSPECIFIC SKIN ERUPTION]Onset: 26-32-2516WxysvcszEyspinxyj-related disorders (5 sources)Nicotine dependence, cigarettes, with unspecified nicotine-induced disorders; Translations: [Nicotine dependence, cigarettes, uncomplicated]Onset: 42-77-3131XltaecwHspoxsmrtzfm (1 source)COUGH, UNSPECIFIED; Translations: [COUGH, UNSPECIFIED]Onset: 12-05-2022 Past or Other Problems Problem ClassificationProblemDateDocumented DateEpisodic/ChronicMalaise and fatigue (4 sources)Other fatigue; Translations: [OTHER FATIGUE]Onset: 94-69-6372Uvddtgsq Results Test NameValueInterpretationReference RangeFacilityLab Reportson 07-49-8242Oar [id number]#1.00CD:[address] [place], [place] [address]Lab Reportson 50-35-2770Uoq Reports [id number]#1.00CD:[address] [place], [place] [address]Consultation Noteon 13-51-1940Qhwoukngbbnx Note [id number]#1.00CD:[address] [place], [place] [address]HISTOPLASMA GALACTOMANNAN AG URINEon 41-57-8119Aswevybjdlw Gal'beata Ag <0.5Normal<0.5 ng/mLThe [facility] CenterComment on above:Performed By: #### SEDR #### [facility] [address] [place] [address] Dr. Nadiya StanfordLab Reportson 59-80-4780Cnj Reports [id number]#1.00CD:[facility] [id number]#1.00CD:[facility] HealthNoToledo HospitalLab Reports [id number]#1.00CD:[address] [place] [address] [id number]#1.00CD:[address] [place] [address] Reportson 64-45-9450Hou Reports [id number]#1.00CD:[address] [place], [place] [address]FUNGAL AB QUANTITAIVE DOUBLE IMMUNODIFFUon 47-48-4659Qegelhkiran flavus NegativeNormalNeg:<1:1Wilson HealthComment on above:Performed By: #### SEDR #### [facility] [address] [place] [address] Dr. Nadiya StanfordAspergillus fumigatusNegativeNormalNeg:<1:1[facility] Comment on above:Performed By: #### SEDR #### [facility] [address] [place] [address] Dr. Nadiya Yeagerergillus nigerNegativeNormalNeg:<1:1[facility] Comment on above:Performed By: #### SEDR #### [facility] [address] [place] [address] Dr. Nadiya StanfordBlastomycesNegativeNormalNeg:<1:1Wilson HealthComment on above:Performed By: #### SEDR #### [facility] [address] [place] [address] Dr. Nadiya StanfordCOCCIDIODES IGG/IGM AB BY IFAon 00-37-9470Bemkwqtyyro Ab, IgG EIA 0.2 EIA UnitsNoChillicothe HospitalComment on above:Result Comment: Negative <1.0 Indeterminate 1.0-1.4 Positive >1.4Performed By: #### COCCABS #### [facility] [address] [place] [address] Dr. Nadiya Oteroccidiodes Ab, IgM, EIA0.2 EIA [facility] Comment on above:Result Comment: Negative <1.0 Indeterminate 1.0-1.4 Positive >1.4Performed By: #### COCCABS #### [facility] [address] [place] [address] Dr. Nadiya Dasilva. PERTUSSIS AB IGA/IGG/IGMon 03-14-2023 pertussis IgA Ab2.2 indexInvalid Interpretation Code0.0-0.9Wilson HealthComment on above: Result Comment: Client Requested Flag Negative <1.0 Borderline 1.0 - 1.1 Positive >1.1Performed By: #### BRDPRT #### [facility] [address] [place] [address] Dr. Nadiya Dasilva pertussis IgG Ab3.49 indexInvalid Interpretation Code0.00-0.94 The [facility] CenterComment on above:Result Comment: Client Requested Flag Negative <0.95 Equivocal 0.95 - 1.04 Positive >1.04Performed By: #### BRDPRT #### [facility] [address] [place] [address] Dr. Nadiya Dasilva pertussis IgM Ab1.8 indexCritically high0.0-0.9Wilson HealthComment on above:Result Comment: Negative <1.0 Borderline 1.0 - 1.1 Positive >1.1Performed By: #### BRDPRT #### [facility] [address] [place] [address] Dr. Nadiya SinghMA CAP AB QUANT DIDon 83-59-1081Psptdkdvrbe Mycelial CF Ab.NegativeNormalNeg:<1:2Wilson HealthComment on above:Performed By: #### HISTDID #### [facility] [address] [place] [address] Dr. Nadiya Wilhelmtopmargama Yeast CF Ab1:2NormalNeg:<1:2[facility] Comment on above:Performed By: #### HISTDID #### [facility] [address] [place] [address] Dr. Nadiya Ch TB GOLD PLUSon 34-53-2354UcnquhZONYZ CriteriaComOhioHealth Grant Medical CenterComment on above:Result Comment: QuantiFERON-TB Gold Plus is a qualitative indirect test for M tuberculosis infection (including disease) and is intended for use in conjunction with risk assessment, radiography, and other medical and diagnostic evaluations. The QuantiFERON-TB Gold Plus result is determined by subtracting the Nil value from either TB antigen (Ag) value. The Mitogen tube serves as a control for the test.Performed By: #### QNTTB #### [facility] [address] [place] [address] Dr. Nadiya Ch IncubationIncubation performed.[facility]Comm[facility] [place] on above:Performed By: #### QNTTB #### [facility] [address] [place] [address] Dr. Nadiya Ch Mitogen Value0.52 IU/mLNGrant Hospital Comment on above:Performed By: #### QNTTB #### [facility] [address] [place] [address] Dr. Nadiya Ch Nil Value0.07 IU/mLNGrant HospitalComment on above:Performed By: #### QNTTB #### [facility] [address] [place] [address] Dr. Nadiya Ch TB1 Ag Value0.06 IU/mLNGrant Hospital Comment on above:Performed By: #### QNTTB #### [facility] [address] [place] [address] Dr. Nadiya Ch TB2 Ag Value0.06 IU/mLNGrant Hospital Comment on above:Performed By: #### QNTTB #### [facility] [address] [place] [address] Dr. Nadiya Ch-TB Tres PlusIndeterminateAbnormalNegativeWayne Hospital on above:Result Comment: Mitogen (positive control) gave low response. This may occur due to suboptimal pre-analytical handling. Chemiluminescence immunoassay methodologyPerformed By: #### QNTTB #### [facility] [address] [place] [address] Dr. Nadiya Morgan EIA W/REFLEX 5 BIOMARKERSon 52-90-4401YQR DirectNegative NormalNegativeWilson HealthComment on above:Performed By: #### SEDR #### [facility] [address] [place] [address] Dr. aNdiya StanfordCYCLIC CITRULLINATED PEPTIDE AB (CCP)on 97-09-4545FEQ Antibodies IgG/IgA6 unitsNormal0-19The [facility] CenterComment on above:Result Comment: Negative <20 Weak positive 20 - 39 Moderate positive 40 - 59 Strong positive >59Performed By: #### SEDR #### [facility] [address] [place] [address] Dr. Nadiya Johnson Reportson 28-54-5458Fhy Reports [id number]#1.00CD:[address] [place], [place] [address]RHEUMATOID FACTORon 13-00-3577EP Latex Turbid.24.1 IU/mLCritically high <14.0The [facility] CenterComment on above:Performed By: #### RF #### [facility] [address] [place] [address] Dr. Nadiya StanfordSED RATE WESTERGRENon 82-46-2465IYH RATE34 mm/hrCritically high <=20The [facility] CenterComment on above:Performed By: #### SEDR #### [facility] [address] [place] [address] Dr. Nadiya StanfordConsultation Noteon 45-63-8281Pcjezffblkwt Note [id number]#1.00CD:[address] [place], [place] [address]RAD - CT Reporton 61-00-0385PKU - CT Report [id number]#1.00CD:[address] [place], [place] [address]CT LUNG CANCER SCREENINGon 15-97-0831UW LUNG CANCER SCREENINGEXAMINATION: CT LUNG CANCER SCREENING HISTORY: Nicotine dependence COMPARISON: No relevant comparison available. TECHNIQUE: Axial, Coronal, and Sagittal images were created without the administration of IV contrast material. Dose reduction techniques were achieved by using automated exposure control and/or adjustment of mA and/or kV according to patient size and/or use of iterative reconstruction technique. FINDINGS: LUNGS: 4 mm nodule within anterior right middle lobe near minor fissure. 10 x 10 x 4 mm thin spiculated opacity within lateral left costophrenic angle. Moderate emphysematous changes throughout. PLEURA: No mass, effusion, or pneumothorax. VASCULATURE: No abnormality. NAKUL: No mass or pathologic adenopathy. MEDIASTINUM: No mass or pathologic adenopathy. CARDIAC: No enlargement, pericardial thickening, or significant calcification. AORTA: No aneurysm or dissection. CHEST WALL: A few axillary lymph nodes bilaterally, not overtly suspicious. BONES: No bone lesion or fracture. LIMITED ABDOMEN: No suspicious findings. Limited images of the upper abdomen. OTHER: Negative. IMPRESSION: 1. Lung-RADS Category 4A- Suspicious. Findings for which additional diagnostic testing and/ or tissue sampling is recommended. 3 month LDCT; PET/CT may be used when there is a >= 8 mm solid component. 2. Follow-up CT chest in 3 months is recommended. Electronically authenticated by: BRANDY CÁRDENAS Date: 2023-02-21 14:31NormCleveland Clinic Union Hospital AUTO DIFFon 24-27-0106WEVZ #0.1 103/ulNormal0.0-0.1Wilson HealthComment on above:Performed By: #### CBC #### [facility] [address] [place] [address] Dr. Nadiya Rosenbergphils/100 WBC (Bld)0.7 %Normal0.2-2.0The [facility] Comment on above:Performed By: #### CBC #### [facility] [address] [place] [address] Dr. Nadiya Jean #1.0 103/ulCritically high0.0-0.7The [facility] CenterComment on above:Performed By: #### CBC #### [facility] [address] [address] [address] Nadiya Anneosinophils/100 WBC (Bld)10.1 %Critically high0.9-7.0The [facility] CenterComment on above:Performed By: #### CBC #### [facility] [address] [place] [address] Dr. Nadiya Annerythrocyte distribution width (RBC) [Ratio]18.2 %Critically high 11.0-15.0The [facility] CenterComment on above:Performed By: #### CBC #### [facility] [address] [place] [address] Dr. Nadiya StanfordHematocrit (Bld) [Volume fraction]35.8 %Critically low42.0-54.0 The [facility] CenterCommclaren northern [place] on above:Performed By: #### CBC #### [facility] [address] [place] [address] Dr. Nadiya StanfordHemoglobin (Bld) [Mass/Vol]11.6 g/dLCritically low14.0-18.0The [facility] Community Hospitalment on above:Performed By: #### CBC #### [facility] [address] [place] [address] Dr. Nadiya Owen #0.05 10e3/ulCritically high0.00-0.03[facility] Comment on above:Performed By: #### CBC #### [facility] [address] [place] [address] Dr. Nadiya Owen %0.5 %Normal0.0-0.5The [facility] on above: Performed By: #### CBC #### [facility] [address] [place] [address] Dr. Nadiya CollierMPH #0.9 103/ulCritically low1.2-3.8The [facility] Comment on above:Performed By: #### CBC #### [facility] [address] [place] [address] Dr. Nadiya Colliermphocytes/100 WBC (Bld)9.2 %Critically low20.5-60.0The [facility] CenterComment on above:Performed By: #### CBC #### [facility] [address] [address] [address] Nadiya Ricketts DIFF REQNONormalThe [facility] CenterComment on above: Performed By: #### CBC #### [facility] [address] [place] [address] Dr. Nadiya Hernandez (RBC) [Entitic mass]29.8 rvBjtwhr01.9-34.0The [facility] CenterComment on above:Performed By: #### CBC #### [facility] [address] [place] [address] Dr. Nadiya Hernandez (RBC) [Mass/Vol]32.4 g/gKGatioa20.9-35.2The [facility] CenterComment on above:Performed By: #### CBC #### [facility] [address] [place] [address] Dr. Nadiya HernandezV (RBC) [Entitic vol]92.0 hUEpoujk48.0-94.0The [facility] CenterComment on above:Performed By: #### CBC #### [facility] [address] [place] [address] Dr. Nadiya Green #1.3 103/ulCritically high0.3-0.8ThMercy Health Allen Hospital Comment on above:Performed By: #### CBC #### [facility] [address] [place] [address] Dr. Nadiya Martinezocytes/100 WBC (Bld)13.3 %Critically high1.7-12.0Wilson HealthComment on above:Performed By: #### CBC #### [facility] [address] [place] [address] Dr. Nadiya Shin #6.6 103/ulCritically high1.4-6.5ThMercy Health Allen Hospital Comment on above:Performed By: #### CBC #### [facility] [address] [place] [address] Dr. Nadiya Marroquinutrophils/100 WBC (Bld)66.2 %Vkwxjg90.0-75.0The [facility] CenterComment on above:Performed By: #### CBC #### [facility] [address] [address] [address] Nadiya StanfordPlatelet mean volume (Bld) [Entitic vol]9.0 fLCritically low 9.5-13.5The [facility] CenterComment on above:Performed By: #### CBC #### [facility] [address] [place] [address] Dr. Nadiya StanfordPLT843 103/ulCritically ygog953-083Thm [facility] CenterComment on above:Performed By: #### CBC #### [facility] [address] [place] [address] Dr. Nadiya StanfordRBC3.89 106/ulCritically low4.70-6.10The [facility] CenterComment on above:Performed By: #### CBC #### [facility] [address] [place] [address] Dr. Nadiya StanfordWBC10.0 103/ulNormal4.0-11.0The [facility] CenterComment on above:Performed By: #### CBC #### [facility] [address] [place] [address] Dr. Nadiya StanfordPROF 14(COMP METB)on 54-42-6988Raldpyy [Mass/Vol]2.9 g/dL Critically low3.4-5.0The [facility] CenterComment on above:Performed By: #### CMP #### [facility] [address] [place] [address] Dr. Nadiya StanfordAlbumin/Globulin [Mass ratio]0.8 {ratio}NormalThe [facility] Health CenterCommclaren northern [place] on above:Performed By: #### CMP #### [facility] [address] [place] [address] Dr. Nadiya Rogers [Catalytic activity/Vol]98 U/SOajpew21-223Zdv [facility] CenterComment on above:Performed By: #### CMP #### [facility] [address] [place] [address] Dr. Nadiya Styles [Catalytic activity/Vol]17 U/WNvoyez80-20Pyr [facility] CenterComment on above:Performed By: #### CMP #### [facility] [address] [address] [address] Nadiya Moore gap [Moles/Vol]15.0 mmol/LNormalThe [facility] Comment on above:Performed By: #### CMP #### [facility] [address] [address] [address] Nadiya StanfordAST [Catalytic activity/Vol]26 U/XXkviqs31-41Ruu [facility] CenterComment on above:Performed By: #### CMP #### [facility] [address] [address] [address] Nadiya StanfordBilirubin [Mass/Vol]0.2 mg/dLNormal0.2-1.0The [facility] Comment on above:Performed By: #### CMP #### [facility] [address] [address] [address] Nadiya StanfordCalcium [Mass/Vol]8.2 mg/dLCritically low8.5-10.1The [facility] CenterComment on above:Performed By: #### CMP #### [facility] [address] [address] [address] Nadiya StanfordChloride [Moles/Vol]105 mmol/LWsicwp15-264Bex [facility] Comment on above:Performed By: #### CMP #### [facility] [address] [address] [address] Nadiya StanfordCO2 [Moles/Vol]23.2 mmol/OUocvof15.0-32.0The [facility] Comment on above:Performed By: #### CMP #### [facility] [address] [address] [address] Nadiya StanfordCreatinine [Mass/Vol]0.83 mg/dLNormal0.70-1.30The [facility] CenterComment on above:Performed By: #### CMP #### [facility] [address] [address] [address] Hearn ChangEGFR-AF WELSH>60Normal>=60The [facility] CenterComment on above:Performed By: #### CMP #### [facility] [address] [address] [address] Nadiya AnneGFR-NON AF WELSH>60Normal>=60The [facility] CenterComment on above:Performed By: #### CMP #### [facility] [address] [address] [address] Nadiya StanfordGlobulin (S) [Mass/Vol]3.8 g/dLNormSelect Medical Specialty Hospital - Boardman, IncComment on above:Performed By: #### CMP #### [facility] [address] [address] [address] Nadiya StanfordGlucose [Mass/Vol]81 mg/gCQmwpgu82-293Bbh [facility] Comment on above:Performed By: #### CMP #### [facility] [address] [address] [address] Nadiya StanfordPotassium [Moles/Vol]4.2 mmol/LNormal3.5-5.1The [facility] Comment on above:Performed By: #### CMP #### [facility] [address] [address] [address] Nadiya StanfordProtein [Mass/Vol]6.7 g/dLNormal6.4-8.2The [facility] Comment on above:Performed By: #### CMP #### [facility] [address] [address] [address] Nadiya StanfordSodium [Moles/Vol]139 mmol/CYemggn705-438Yhy [facility] Comment on above:Performed By: #### CMP #### [facility] [address] [address] [address] Nadiya StanfordUrea nitrogen [Mass/Vol]5.0 mg/dLCritically low7.0-18.0The [facility] CenterComment on above:Performed By: #### CMP #### [facility] [address] [address] [address] Nadiya StanfordUrea nitrogen/Creatinine [Mass ratio]6.0 mg/mgNormSelect Medical Specialty Hospital - Board[facility], IncComment on above:Performed By: #### CMP #### [facility] [address] [place], [place] [address] Dr. Nadiya StanfordProvibaron Letteron [phone] Letter January 28, 2023 CHENTE VARGAS [address] [place] [address] [place] [phone] CHENTE VARGAS 1965 Dear Chente , We have been trying to reach you with no success. It is important that you return our call regarding your referral from Trinity Hull upon receiving this letter. Also, at the time of your call, please provide us with your current information. Thank you for your prompt attention to this matter. Sincerely, General Surgery [phone] Shelby HospitalAmbulatory Visit Summaryon 81-75-5677Aicsoaquym Visit Summary CHENTE VARGAS :1965 Visit Date:01/24/2023 Ambulatory Visit Instructions Your Diagnosis COPD (chronic obstructive pulmonary disease) BMI 21.0-21.9, adult Microcytic anemia Colon cancer screening Your Care Team Attending Physician - Trinity Castro Primary Care Physician - MALCOM CONTE, ELVIRA Borges This Is Your Medications List albuterol (Albuterol (Eqv-ProAir HFA) 90 mcg/inh inhalation aerosol) Procedures Performed History of ankle surgery. Discharge Vitals Temperature (Oral) 36.9 ?C Heart Rate (Peripheral) 84 Blood Pressure 100/60 Height 172 cm Height 68 in Weight 64.1 kg Weight 141.02 lb BMI 21.67 What to do next Someone Will Contact You Regarding These Appointments [facility] [place] Ambulatory Referral, Patient choice/referral by family/friend, Pulmonology, Refer to Dr. Garcia at [facility], 01/24/23 11:10:00 EDT, COPD (chronic obstructive pulmonary disease) [facility] Referral, Patient choice/referral by family/friend, Gastroenterology, To be done at [facility]-He needs colon cancer screening-colonoscopy, 01/24/23 11:11:00 EDT, Colon cancer screening Medications What How Much When Instructions Unchanged albuterol (Albuterol (Eqv-ProAir HFA) 90 mcg/ inh inhalation aerosol) See instructions 2 puffs every 4 hours as needed Medications and Immunizations Administered Not Given influenza virus vaccine, inactivated, Patient Refuses Allergies No Known Medication Allergies Problems Ongoing - Any problem that you are currently receiving treatment for. COPD (chronic obstructive pulmonary disease) Degenerative disc disease, lumbar Microcytic anemia Spinal stenosis Thrombocytosis [facility] Medicine Office/Clinic Noteon [id number] Medicine Office/Clinic NoteChief Complaint PFT results and labs HPI Staff Patient of Dr Walker's having breathing difficulties and would like his PFT results Patient is here for follow up on COPD: Feeling controlled on medication:prn Need medication refilled:yes Do you use O2? no covid/flu: ??no any questions or concerns: History of Present Illness pt presents today to go over lab work and PFT results. Review of Systems PHQ Score Initial Depression Screen Score: 3 Detailed Depression Screen Score: 11 Total Depression Screen Score: 14 ROS - Provider Constitutional: no fever, no chills, no sweats, no fatigue Respiratory: yes shortness of breath, yes cough, yes orthopnea, yes wheezing. Cardiovascular: no chest pain, no palpitations, no edema. Neurologic: no headache, no dizziness, no numbness, no weakness. Physical Exam Vitals & Measurements T: 36.9 ?C(Oral) HR: 84(Peripheral) BP: 100/60 SpO2: 94% HT: 68 in HT: 172 cm WT: 64.1 kg WT: 141.02 lb BMI: 21.67 General: alert, no acute distress Skin: warm, dry Head: no trauma, normocephalic Neck: Trachea midline, thyroid not enlarged Eye: normal conjunctiva, sclera clear ENMT: oral mucosa moist, yes Cardiovascular: regular rate and rhythm, normal Respiratory: respirations demonstrate accessory muscle use wheezing throughout all lung campbell Chest wall: no deformity. Gastrointestinal: soft, non distended, no tenderness Back: No tenderness Extremities: no edema, no wound Neurological: awake, alert, oriented, speech normal Psychiatric: cooperative, affect appropriate for age Assessment/Plan 1. COPD (chronic obstructive pulmonary disease) (J44.9: Chronic obstructive pulmonary disease, unspecified) discussed PFT results at length. pt understands COPD is a chronic condition. highly encouraged him to stop smoking cigarettes and marijuana. pt is only using albuterol inhaler. states he uses it multiple times throughout the day. will add symbicort until we are able to get him referred to Dr. Garcia. referral sent. pt does not drive and is considering moving to a PCP in [place]. Ordered: budesonide-formoterol, 2 puff(s), Inhalation, BID, 10.2 gm, Refill(s) 0, [facility] #[id number], 172, cm, 01/24/23 10:45:00 EDT, Height/Length Dosing, 64.1, kg, 01/24/23 10:45:00 EDT, Weight Dosing fluticasone nasal, 2 spray(s), Nasal, Daily, 16 gram, Refill(s) 0, each nostril, [facility] #[id number], 172, cm, 01/24/23 10:45:00 EDT, Height/Length Dosing, 64.1, kg, 01/24/23 10:45:00 EDT, Weight Dosing [facility] [place] 2. Microcytic anemia (D50.9: Iron deficiency anemia, unspecified) discussed lab results. discussed that he could possibly be bleeding internally causing HBG to be low. Ordered: fluticasone nasal, 2 spray(s), Nasal, Daily, 16 gram, Refill(s) 0, each nostril, [facility] #[id number], 172, cm, 01/24/23 10:45:00 EDT, Height/Length Dosing, 64.1, kg, 01/24/23 10:45:00 EDT, Weight Dosing 3. Colon cancer screening (Z12.11: Encounter for screening for malignant neoplasm of colon) has never had colonoscopy. will refer to [facility] for screening colonoscopy Ordered: fluticasone nasal, 2 spray(s), Nasal, Daily, 16 gram, Refill(s) 0, each nostril, [facility] #[id number], 172, cm, 01/24/23 10:45:00 EDT, Height/Length Dosing, 64.1, kg, 01/24/23 10:45:00 EDT, Weight Dosing [facility] [place] 4. BMI 21.0-21.9, adult (Z68.21: Body mass index [BMI] 21.0-21.9, adult) BMI education complete Ordered: fluticasone nasal, 2 spray(s), Nasal, Daily, 16 gram, Refill(s) 0, each nostril, [facility] #[id number], 172, cm, 01/24/23 10:45:00 EDT, Height/Length Dosing, 64.1, kg, 01/24/23 10:45:00 EDT, Weight Dosing Orders: albuterol, 2 puff(s), Inhalation, q4hr, 8.5 gm, Refill(s) 2, inhale 2 puffs by mouth and INTO THE LUNGS four times a day if needed, [facility] #[id number], 172, cm, 01/24/23 10:45:00 EDT, Height/Length Dosing, 64.1, kg, 01/24/23 10:45:00 EDT, Weight Dosing Follow-up No qualifying data available Problem List/Past Medical History Ongoing COPD (chronic obstructive pulmonary disease) Degenerative disc disease, lumbar Microcytic anemia Spinal stenosis Thrombocytosis Historical No qualifying data Procedure/Surgical History History of ankle surgery. Medications Albuterol (Eqv-ProAir HFA) 90 mcg/inh inhalation aerosol, See Instructions Albuterol (Eqv-ProAir HFA) 90 mcg/inh inhalation aerosol, 2 puff(s), Inhalation, q4hr, 2 refills Flonase 0.05 mg/inh [place], 2 spray(s), Nasal, Daily Symbicort 160/4.5 inhalation aerosol with adapter, 2 puff(s), Inhalation, BID Allergies No Known Medication Allergies Social History Tobacco 10 or more cigarettes (1/2 pack or more)/day in last 30 days Tobacco Use:. Never Smokeless Tobacco Use:. Cigarettes, Ready to change: No., 01/24/2023 Immunizations Vaccine Date Status Comments influenza virus vaccine, inactivated - Not Given Patient RefusesOhioHealth Shelby HospitalComment on above:Result Comment: Electronically Signed By: Trinity Castro\Date and Time Signed: 01/24/23 11:51 EDTPhysician Referralon 22-24-6028Xvkkofjti Referral [id number]:127[facility] HospitalLab Reportson 10-19-7415Zci Reports [id number]:127[facility] HospitalPulmonary Function Testson 32-51-6750Asekhyebo Function Tests [id number]:127[facility] HospitalHEMOGLOBINon 40-26-1852Yjlwmjkial (Bld) [Mass/Vol]12.2 g/dLCritically low 14.0-18.0The [facility] CenterComment on above:Performed By: #### SEDR #### [facility] [address] [place] [address] Dr. Nadiya Mahmood AND TIBCon 01-03-2023% OCKGPPRMVX76.3 %NormalThe [facility] Health CenterComment on above:Performed By: #### FETIBC #### [facility] [address] [place] [address] Dr. Nadiya Mahmood [Mass/Vol]73.0 ug/fHMeqmuy31.0-175.0[facility] Comment on above:Performed By: #### FETIBC #### [facility] [address] [place] [address] Dr. Nadiya Tenorio QPHVTP983.0 ug/eHXhcwmd593.0-450.0[facility] Comment on above:Performed By: #### FETIBC #### [facility] [address] [place] [address] Dr. Nadiya Melchor AUTO DIFFon 23-05-5752UZGV #0.1 103/ulNormal0.0-0.1[facility] HealthComment on above:Performed By: #### CBC #### [facility] [address] [place] [address] Dr. Nadiya StanfordBasophils/100 WBC (Bld)1.1 %Normal0.2-2.0[facility] Comment on above:Performed By: #### CBC #### [facility] [address] [place] [address] Dr. Nadiya Jean #1.2 103/ulCritically high0.0-0.7The [facility] CenterComment on above:Performed By: #### CBC #### [facility] [address] [place] [address] Dr. Nadiya Anneosinophils/100 WBC (Bld)18.4 %Critically high0.9-7.0The [facility] CenterComment on above:Performed By: #### CBC #### [facility] [address] [place] [address] Dr. Nadiya Annerythrocyte distribution width (RBC) [Ratio]16.9 %Critically high 11.0-15.0The [facility] CenterComment on above:Performed By: #### CBC #### [facility] [address] [place] [address] Dr. Nadiya StanfordHematocrit (Bld) [Volume fraction]39.0 %Critically low42.0-54.0 The [facility] CenterComment on above:Performed By: #### CBC #### [facility] [address] [place] [address] Dr. Nadiya StanfordHemoglobin (Bld) [Mass/Vol]12.9 g/dLCritically low14.0-18.0The [facility] CenterComment on above:Performed By: #### CBC #### [facility] [address] [place] [address] Dr. Nadiya Owen #0.01 10e3/ulNormal0.00-0.03The [facility] CenterComment on above:Performed By: #### CBC #### [facility] [address] [place] [address] Dr. Nadiya Owen %0.2 %Normal0.0-0.5The [facility] CenterComment on above: Performed By: #### CBC #### [facility] [address] [place] [address] Dr. Nadiya Adorno #1.0 103/ulCritically low1.2-3.8The [facility] Comment on above:Performed By: #### CBC #### [facility] [address] [place] [address] Dr. Yilan ChangLymphocytes/100 WBC (Bld)16.4 %Critically low20.5-60.0The [facility] CenterComment on above:Performed By: #### CBC #### [facility] [address] [place] [address] Dr. Nadiya Ricketts DIFF REQNONormalThe [facility] Health CenterComment on above: Performed By: #### CBC #### [facility] [address] [place] [address] Dr. Nadiya Hernandez (RBC) [Entitic mass]29.5 ndDiijeb47.9-34.0The [facility] CenterComment on above:Performed By: #### CBC #### [facility] [address] [place] [address] Dr. Nadiya Hernadnez (RBC) [Mass/Vol]33.1 g/zAHfkcpl00.9-35.2The [facility] CenterComment on above:Performed By: #### CBC #### [facility] [address] [place] [address] Dr. Nadiya Peralta (RBC) [Entitic vol]89.0 zDWzhmpt29.0-94.0The [facility] CenterComment on above:Performed By: #### CBC #### [facility] [address] [place] [address] Dr. Nadiya Green #0.9 103/ulCritically high0.3-0.8The [facility] Comment on above:Performed By: #### CBC #### [facility] [address] [place] [address] Dr. Nadiya Martinezocytes/100 WBC (Bld)13.9 %Critically high1.7-12.0The [facility] CenterComment on above:Performed By: #### CBC #### [facility] [address] [place] [address] Dr. Nadiya Shin #3.2 103/ulNormal1.4-6.5The [facility] CenterComment on above:Performed By: #### CBC #### [facility] [address] [place] [address] Dr. Nadiya Marroquinutrophils/100 WBC (Bld)50.0 %Jqntbx08.0-75.0The [facility] CenterComment on above:Performed By: #### CBC #### [facility] [address] [address] [address] Nadiya StanfordPlatelet mean volume (Bld) [Entitic vol]9.1 fLCritically low 9.5-13.5The [facility] CenterComment on above:Performed By: #### CBC #### [facility] [address] [address] [address] Nadiya StnafordPLT667 103/ulCritically vczs159-930Gwl [facility] CenterComment on above:Performed By: #### CBC #### [facility] [address] [place] [address] Dr. Nadiya StanfordRBC4.38 106/ulCritically low4.70-6.10The [facility] CenterComment on above:Performed By: #### CBC #### [facility] [address] [place] [address] Dr. Nadiya StanfordWBC6.4 103/ulNormal4.0-11.0The [facility] CenterComment on above: Performed By: #### CBC #### [facility] [address] [place] [address] Dr. Nadiya StanfordXR CHEST 2 Von 90-86-8424IW CHEST 2 VEXAMINATION: XR CHEST 2 V HISTORY: Cough COMPARISON: No relevant comparison available. FINDINGS: LUNGS: Hyperexpanded lungs without appreciable infiltrates or mass. VASCULATURE: No increased pulmonary vasculature. PLEURA: No pneumothorax, effusion, or pleural thickening. CARDIAC: No cardiomegaly or cardiac silhouette abnormality. MEDIASTINUM: No visible mass or adenopathy. BONES: Prior plate and screw repair of left clavicle. OTHER: Negative. IMPRESSION: 1. No acute cardiopulmonary process. 2. Hyperexpanded lungs. Electronically authenticated by: BRANDY CÁRDENAS Date: 2022-12-03 17:42[facility] Vital Signs Date TimeVital SignValuePerforming JywxwesbrUezwjnyd31-35-1024 13:15-0500Body taofim332.18 cmPlucero Clark Other noKeegy Other 01-08-2023 13:15-0500Body mass index (BMI) [Ratio] 20.36 kg/v3AasznnGuillermina Clark Other [facility] Other 01-08-2023 13:15-0500Body nidcsogapbt40 [degF]Guillermina Clark Other [place] Other 01-08-2023 13:15-0500Body gasmuk17.97 kgGuillermina Clark Other [facility] Other 01-08-2023 13:15-0500Diastolic blood ovpzzypd87 mm[Hg] Guillermina Jhaverimond Other [place] Other 01-08-2023 13:15-0500Respiratory rate18 /minGuillermina Clark Other [facility] Other 01-08-2023 13:15-9244VuW7% (BldA) [Mass fraction]98 % Guillermina Jhaverimond Other [facility] Other 01-08-2023 13:15-0500Systolic blood bjwvdryn261 mm[Hg] Guillermina Clark Other [facility] Other Encounters Encounter DateEncounter TypeCare ProviderFacilityStart: 03-12-2023 End: 62-98-3383rjnzrblqkfENZFJY SAMSA .Facility:L8Wsjtz: 02-21-2023 End: 34-88-9432vcixyoumdkZRIRVS SAMSA .Facility:Z9Jdlxp: 02-15-2023 End: 98-02-8873txeymrejjkNUIFMP RODRIGUEZ .Facility:U4Baffg: 01-28-2023 ambulatoryMichael R NILLFacility:GS [place]vueStart: 01-24-2023 End: 41-74-6376sfzwetgolxQfko L SchwabFacility:FT FM BellevueStart: 01-23-2023 ambulatoryMichael NILLFacility:FT FM BellevueStart: 20-46-7975znnhbosickLFO E KNIGHTFacility:FT FM BellevueStart: 01-03-2023 End: 37-13-8821soowkzleyuPG KIM E KNIGHT .Facility:P4Ukzfb: 77-96-5318powvuaqxwk DR ELVIRA WALKER .Facility:Z2Fosox: 12-03-2022 End: 08-91-3595sisayjinrpLC KIM E KNIGHT .Facility:O4Uvuxi: 11-11-2022 End: 88-20-3571spzesmugqoCltkya Dymond Other [facility] [employer] Other Start: 31-28-2964Odcfug outpatient new 20 minutes Guillermina ClarkFPG [facility] DatePayer CategoryPayerPolicy [id number] [id number] 2...[id number] 2..1.532954.3.57[id number] ..1.345596.3.57[id number] ..1.218940.3.57[id number] 2..1.574558.3.57[id number] 2..1.532855.3.57[id number] 2.16.840.1.824772.3.57[id number] 2.16.840.1.562210.3.57[id number] 2.16.840.1.087085.3.57[id number] 2.16.840.1.875132.3.57[id number] 2.16.840.1.786863.3.57[id number] 2.16.840.1.088644.19 [id number]-pay Social History DateTypeDetailFacilitySex Assigned At [facility] [employer] Other History and physical note 01-17-2023 Note Date & VaoeGbkfFhwpunlc77-74-3347 Note [id number]:[address] [place] [address] Comment on above:Other Comment: INCORRECT SCAN.NDW Evaluation note 11-11-2022 Note Date & XxffJnuoTstjblzr35-99-0111 Evaluation note* Encounter Date Diagnosis Assessment Notes Treatment Notes Treatment Clinical Notes Nov, Bronchitis (ICD-10 - J40) Acute bronchitis material was printed Drink plenty fluids, get plenty of rest. Take the azithromycin and prednisone as prescribed until gone. Use the albuterol inhaler as prescribed as needed for cough or shortness of breath. Take the Tessalon Perles as prescribed as needed for cough. Try to stop smoking. Take Tylenol or Motrin as needed for aches pains or fevers. Follow-up with your family physician if no improvement in 2 to 3 days. [place] [employer] Other History general Narrative - Reported Note Date & TypeNoteFacilityHistory general Narrative - Reported* Type Description Date Surgical History left shoulder Surgical Historyright ankleSurgical Historyplates and screws removed from right ankle [facility] Other Summary Purpose Family History No Family History Records FoundNo Family History Records Found Advance Directives No Advanced Directives Records FoundNo Advanced Directives Records Found Additional Source Comments REASON FOR VISIT (unrecogniz ed section and content) COUGH, CONGESTION (unrecognized sect ion and content) No Status Records FoundNo Status Records Found INFORMATION SOURCE (unrecogn ized section and content) DATE CREATED AUTHOR 03/20/2023 [facility] DATE CREATED AUTHOR AUTHOR'S ORGANIZ ATION 04/12/2023 [facility] FOR RECORDS PERTAINING TO PATIENTS WHO ARE OR HAVE BEEN ENROLLED IN A CHEMICAL DEPENDENCY/SUBSTANCEABUSE PROGRAM, SOME INFORMATION MAY BE OMITTED. This clinical summary was aggregated from multiple sources. Caution should be exercised in using it in the provision of clinical care. This summary normalizes information from multiple sources, and as a consequence, information in this document may materially change the coding, format and clinical context of patient data. In addition, data may be omitted in some cases. CLINICAL DECISIONS SHOULD BE BASED ON THE PRIMARY CLINICAL RECORDS. [employer] [facility]. provides no warranty or guarantee of the accuracy or completeness of information in this document.
--- OUTSIDE RECORDS SUMMARY | 2025-09-26 14:43 | XMS_ITS | Patient Health Record ---
Author Organization [facility] Address [address] [place] [address] Care Team Providers Care Chart Snatcher Name Role Phone House Ruddy HINTON Primary Care Provider Wilder Zabalaen Unavailable [phone] Allergies No Known Allergies Reason For Referral No Information Social History Tobacco Use: Social History Observation Description Date Details (start date - stop date) Current Smoker NA - NA AUDIT-C (Standard) Question Answer Notes Did you have a drink containing alcohol in the p ast year? Yes How often did you have six or more drinks on one occasion in the past year? Declined to specify (0 point)How many drinks did you have on a typical day when you were drinking in the past year?Declined to specify (0 point)How often did you have a drink containing alcohol in the past year?Declined to specify (0 point)Idrkhs3KrosxompulkrlqOieukornFtjpxcq Control (Standard) Question Answer Notes Tobacco use: Current smoker Problems Problem Type SNOMED Code ICD Code Onset Dates Problem Status W/U Status Risk Notes Problem Closed fracture of distal end of left radius, unspecified fracture morphology, initial encounter (S52.502A)Activeconfirmed Plan Of Treatment Pending Test Test Name Order Date SCC- WRIST 3 VIEW LEFT [id number] 07/29/2024 Insurance Providers Payer Name Payer Address Payer Phone Subscriber Number Group Number Insured Name Patient Relationship to Insured Coverage Start Date Coverage End Date Medicare [employer] [address] [place] [address] [id number] AARON VARGASelf - patient is the insured Medical (General) History Medical History History ICD Code Asthma/COPD Respiratory problems:Lung DiseaseDepressionMental Illness:AnxietySurgical History Surgery Date(Month/Year) Lt shoulder Rt ankle
--- OUTSIDE RECORDS SUMMARY | 2025-09-26 14:43 | XMS_ITS | Patient Health Record ---
Author Organization [facility] [place] Address [address] [place] [address] Care Team Providers Care Supervisor [employer] Name Role Phone Ruddy Yoder DO Primary Care Provider Unavaila ble Allergies No Known Allergies Reason For Referral No Information Medications Medication SIG (Take, Route, Frequency, Duration) Notes Start Date End Date Status Trelegy Ellipta 100-62.5-25 MCG/ACT 1 puff Inhal ation Once a day; Duration: 30 02/13/2023ctiveNicotine Step 1 21 MG/24HR1 patch to skin Transdermal Once a day; Duration: 30 days03/12/2023Not-TakingAlbuterol Sulfate HFA 108 (90 Base) MCG/ACT2 puffs as needed Inhalation every 4 hrsActiveFluticasone Propionate 50 MCG/ACT1 spray in each nostril Nasally Once a dayActive Social History Tobacco Use: Social History Observation Description Date Details (start date - stop date) Current Smoker NA - NA Tobacco Use/Smoking Question Answer Notes Patient is a current smoker How often do you smoke cigarettes?every dayHow many cigarettes a day do you smoke?11-20 Problems Problem Type SNOMED Code ICD Code Onset Dates Problem Status W/U Status Risk Notes Problem Whooping cough due to Bordetella pertussis with pneumonia (A37.01)Active confirmedProblemCentrilobular emphysema (38726924)Centrilobular emphysema (J43.2)ActiveconfirmedProblemInterferon gamma assay positive (154153711) Nonspecific reaction to cell mediated immunity measurement of gamma interferon antigen response without active tuberculosis (R76.12)ActiveconfirmedProblem Solitary pulmonary nodule (513610128)Solitary pulmonary nodule (R91.1)Active confirmedProblemLong-term current use of inhaled steroid (816114003)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 Patient was counseled on the benefits of smoking cessation including decreased risk of lung cancer and development of respiratory illnesses (e.g. COPD). Smoking cessation strategies discussed/considered include nicotine replacement therapy, bupropion (Wellb utrin/Zyban), varenicline (Chantix), alternative treatments (e.g. acupuncture, hypnosis), and coldturkey. He is edentulous, so gum will not work. With EtOH intake, avoiding Wellbutrin and Chantix. Advised patient that patches would be the best pharmacological treatment. He voiced he would try to cut backfor now, either cigarettes or marijuana. He stated he would consider the patches. Ordered LDCT. 86 pack-year history. ProblemAlcoholism (2154595)Alcoholism (F10.20)ActiveconfirmedExcessive EtOH intake, 12+ beers/day and 6-7 shots of whiskey/day.ProblemMicrocytic anemia (387130044)Microcytic anemia (D50.9)ActiveconfirmedProblemAlcohol intoxication (08577314)Alcohol intoxication (F10.129)ActiveconfirmedProblemAllergic rhinitis (74040591)Allergic rhinitis, unspecified seasonality, unspecified trigger (J30.9)ActiveconfirmedRelated to pulmonary symptoms? Eosinophils? Flonase not effective. Avoiding Singulair d/t excessiveEtOH intake. Patient counseled to identify any triggers and avoid them.ProblemPeripheral eosinophilia (D72.19) Activeconfirmed Trending eosionphil % and absolute counts: -12/03/2022: 18.4%/1.2 -06/18/2015: 4.3%/0.4 -12/20/2014: 3.6%/0.3 -11/07/2014: 2.7%/0.3 -08/30/2013: 6%/0.94 Plan Of Treatment No Information Insurance Providers Payer Name Payer Address Payer Phone Subscriber Number Group Number Insured Name Patient Relationship to Insured Coverage Start Date Coverage End Date [employer] AD[employer]AN [address] [place] [phone] [id number] Chente Alamo Self - patient is the insured 3 Medical (General) History Medical History History ICD Code Degenerative disc disease, lumbar M51.36 Spinal stenosis M48.00 Microcytic anemia D50.9 Thrombocytosis D75.839 Sigmoid diverticulosis K57.30 Peripheral eosinophilia D72.19 Centrilobular emphysema J43.2 Solitary pulmonary nodule R91.1 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
[2025-09-26] MEDS: ORPHENADRINE 60 MG/2 ML VIAL IM (14:53)
[2025-09-26] MEDS: TRAMADOL HCL 50 MG TABLET PO (14:53)
[2025-09-26] MEDS: KETOROLAC TROMETHAMINE 30 MG/ML VIAL IM (14:53)
--- NOTE | 2025-09-26 16:59 | ED.GENADUL1 ---
HPI HPI - General Adult General Chief complaint: Extremity Injury, Upper Stated complaint: FALL; R SHOULDER PAIN Time Seen by Provider: 09/26/25 14:05 Source: patient Mode of arrival: walk-in Limitations: no limitations History of Present Illness HPI narrative: 60 years old male presenting to the ER with a right shoulder pain that started after falling yesterday onto the couch, the patient denies any other complaint he said that he has some tingling in his hand sometimes but is not all the time Related Data Previous Rx's ?Medication ?Instructions ?Recorded oxycodone-acetaminophen 5 mg-325 1 tab PO Q8H PRN pain 3 days #9 09/26/25 mg tablet (Percocet) tabs Allergies Allergy/AdvReac Type Severity Reaction Status Date / Time No Known Drug Allergies Allergy Verified 09/26/25 13:16 Opioid HPI Opioid Management Most Recent Opioid Data: Last Pain Scale 8 Today, 13:12 Last JAN Pain Assessment Today, 14:53 Review of Systems ROS Status of ROS 10 or more systems reviewed and unremarkable except as noted in history and below [facility] Medical History (Updated 09/26/25 @ 17:08 by Gila Guardado MD) Mass of right lung ?R91.8 - Other nonspecific abnormal finding of lung field (ICD-10) COPD (chronic obstructive pulmonary disease) ?J44.9 - Chronic obstructive pulmonary disease, unspecified (ICD-10) Social History Smoking status: Heavy tobacco smoker Little interest or pleasure in doing things: not at all Feeling down, depressed, or hopeless: not at all Exam Narrative Exam Narrative: Nurses notes and vital signs reviewed and patient is not hypoxic. General: Well-appearing and in no apparent distress. Skin: Warm, dry, no pallor noted. No rash. Head: Normocephalic, atraumatic. Neck: Supple, non-tender. Cardiovascular: Regular Rate and Rhythm without murmur, gallop or rub. Respiratory: No accessory muscle use or respiratory distress. Lungs are clear to auscultation, no wheezing, rales or rhonchi Chest Wall: no tenderness Back: No midline thoracic or lumbar vertebral tenderness. No CVA tenderness Musculoskeletal: Right shoulder movement with the right shoulder and the patient have tenderness upon palpation of the anterior of the right shoulder the patient also have tenderness upon palpation of the right humerus and limitation movement of the right elbow due to pain Have a good radial pulse and normal sensation in both hands equally GI: Abdomen is soft, non-distended. Normal bowel sounds. No masses appreciated. No tenderness to palpation. No rebound, guarding, or rigidity noted. Neurological: A&O x4. No cranial nerve dysfunction observed. No truncal ataxia. Moves all extremities. Sensation intact. Psychiatric: Cooperative and interactive. Normal mood and affect. Constitutional Vital Signs, click to edit/add: Last Vital Signs Temp 98.5 F 09/26/25 13:12 Pulse 102 H 09/26/25 13:12 Resp 18 09/26/25 13:12 BP 129/89 09/26/25 13:12 Pulse Ox 95 09/26/25 13:12 O2 Del Method Room Air 09/26/25 13:12 Course Vital Signs Vital signs: Vital Signs Temperature 98.5 F 09/26/25 13:12 Pulse Rate 102 H 09/26/25 13:12 Respiratory Rate 18 09/26/25 13:12 Blood Pressure 129/89 09/26/25 13:12 Pulse Oximetry 95 09/26/25 13:12 Oxygen Delivery Method Room Air 09/26/25 13:12 Temperature 98.5 F 09/26/25 13:12 Pulse Rate 102 H 09/26/25 13:12 Respiratory Rate 18 09/26/25 13:12 Blood Pressure 129/89 09/26/25 13:12 Pulse Oximetry 95 09/26/25 13:12 Oxygen Delivery Method Room Air 09/26/25 13:12 Medical Decision Making MDM Narrative Medical decision making narrative: The patient had an x-ray of his right shoulder humerus elbow as well as forearm and they all showed that the patient have nondisplaced humerus neck fracture I did discuss the finding with Dr. Cespedes She agrees that the patient with a shoulder sling and can follow-up as outpatient with [facility] in [place] Provided with pain medication I did review the patient previous evaluation he had alcohol intoxication before and I did explain to him that he is not supposed to take his Percocet with alcohol as it would cause him side effects the pt Understands The patient to follow-up with the primary care within 2 to 3 days and to come back to the ER in case of any worsening of the current symptoms or any new symptoms or concerns Discharge Plan Discharge Chief Complaint: Extremity Injury, Upper Clinical Impression: Closed fracture of humerus, surgical neck Patient Disposition: Home, Self-Care Time of Disposition Decision: 17:06 Condition: Good Prescriptions / Home Meds: New oxycodone-acetaminophen [Percocet] 5-325 mg tablet 1 tab PO Q8H PRN (Reason: pain) 3 Days Qty: 9 0RF Print Language: Divehi Instructions: Arm Fracture in Adults (DC) Referrals: Konstantin Gravesropyanely [Other] - 09/27/25 Referral Note: Call for an appointment Saturday INES GARCIA [Primary Care Provider, Family Practice] - 1 week Discharge Date/Time: 09/26/25 17:23
== END 2025-09-26 17:23 | disposition home or self-care (01) ==
PROVIDERS: Emergency Provider Emergency Medicine; PCP Family Medicine
DX: S42.211A Unspecified displaced fracture of surgical neck of right humerus, initial encounter for closed fracture (principal); W18.39XA Other fall on same level, initial encounter; F17.200 Nicotine dependence, unspecified, uncomplicated
CPT/HCPCS: 73030; 73060; 73070; 73090; 96372; 99284; J1885; J2360

== ENCOUNTER 2025-10-06 18:50 | Emergency (ER) | payer MEDICARE, SELFPAY ==
--- OUTSIDE RECORDS SUMMARY | 2024-07-13 06:00 | XMS_ITS ---
Author Organization [facility] Address [address] [place] [address] Care Team Providers Care Sheet Music Salesperson Name Role Phone Ruddy Yoder DO Primary Care Provider Raza Zabala Unavailable [phone] REASON FOR VISIT TB ER f/u LT wrist fx Encounters Encounter Location Date Provider Diagnosis [facility] Office [address] [place] [address] [place] [address] 07/13/2024 Raza Oliveira Plan Of Treatment No Information Progress Notes * VERONICA VARGAS GDOB:[birth year] (60 yo M)Acc No.[id number]:07/13/2024 Patient:?VERONICA VARGAS :?Raza Oliveira, MDDOB:1965???Age:59 Y ???Sex:MaleDate:07/13/2024hone:[phone]:[address], [id number]:Ruddy Yoder DO Subjective: * Chief Complaints: * 1 . [facility] ER f/u LT wrist fx. * Medical History: Objective: * Vitals: Assessment: Plan: * Treatment: Forms: * Images: * Electronic signature of Raza Oliveira MD on 10/06/2025 at 07:57 PM ESTSign off status: Pending * Provider: Luci Oliveira MD Date: 0 07/13/2024 Generated for Printing/Faxing/eTransmitting on:?10/06/2025 07:57 PM EST
--- OUTSIDE RECORDS SUMMARY | 2024-08-19 09:15 | XMS_ITS ---
Author Organization [facility] Address [address] [place] [address] Care Team Providers Care Tattoo Identifier Name Role Phone Ruddy Yodre DO Primary Care Provider Raza Zabala Unavailable [phone] REASON FOR VISIT lt distal radius fx, 3 week ck Encounters Encounter Location Date Provider Diagnosis [place] [facility] [address] [address] 08/19/2024 Raza Oliveira Plan Of Treatment Pending Test Test Name Order Date SCC- WRIST 3 VIEW LEFT [id number] 08/19/2024 Progress Notes * VERONICA VARGAS GDOB:[birth year] (60 yo M)Acc No.[id number]:08/19/2024 Patient:?ALICIAVERONICA :?Raza Oliveira, MDDOB:1965???Age:59 Y ???Sex:MaleDate:08/19/2024hone:[phone]:[address], [id number]:Ruddy Yoder DO Subjective: * Chief Complaints: * 1 . Lt distal radius fx, 3 week ck. * Medical History: Objective: * Vitals: Assessment: Plan: * Treatment: ?Imaging: SCC- WRIST 3 VIEW LEFT [id number] * Procedure Codes: 7 3110 X-ray Wrist, 3 view Forms: * Images: * Electronic signature of Raza Oliveira MD on 10/06/2025 at 07:57 PM ESTSign off status: Pending * Provider: Luci Oliveira MD Date: 1 Generated for Printing/Faxing/eTransmitting on:?10/06/2025 07:57 PM EST
[2025-10-06] VITALS (10 sets, daily range): BP systolic 104–147; BP diastolic 75–91; PULSE 71–80; TEMP 36.6; O2SAT 76–97; BMI 19.8
--- NOTE | 2025-10-06 19:28 | CT_ITS ---
The [address] [address] Patient Name: VERONICA VARGAS MRN: [id number] date: 1965 Sex: M Assigned Patient Location: ER Current Patient Location: ED.MAIN Accession/Order Number: [id number] Exam Date: 10/06/2025 20:22 Report Date: 10/06/2025 22:30 At the request of: HARI KRAMER Procedure: CT abdomen pelvis w con CT ABDOMEN AND PELVIS WITH INTRAVENOUS CONTRAST: CLINICAL HISTORY: trauma, right-sided rib pain COMPARISON: None TECHNIQUE: Spiral images were obtained through the abdomen and pelvis following the administration of intravenous contrast. This CT exam was performed using one or more following dose reduction techniques: Automated exposure control, adjustment of the mA and/or kV according to patient size, or use of iterative reconstruction technique. FINDINGS: Minor hypoventilatory changes. Diffuse low attenuation liver suggestive of fatty infiltration. Otherwise the spleen, adrenals, and pancreas are unremarkable. Left upper pole renal cyst. Kidneys otherwise grossly unremarkable in size and enhancement. No hydronephrosis. Mild retained stool throughout the colon. No bowel obstruction. Mild scattered colonic diverticulosis greatest involving sigmoid colon. Appendix is not identified. No pericecal moderate changes. Bladder unremarkable. Prostate unremarkable. No free air or free fluid. Degenerative changes notably L4-L5 with foraminal narrowing at this level. Otherwise no displaced fractures identified within the constraints of this examination. CT/CT abdomen pelvis w con IMPRESSION: Motion degradation. No definite acute posttraumatic process identified on this examination. Impression dictated by: Pedro Mcgovern M.D. 10/06/2025 10:30 PM Dictation Location: [place] [address] Electronically authenticated by: [id number] Y Date: 10/06/2025 22:30
--- NOTE | 2025-10-06 19:28 | CT_ITS ---
The [address] [address] Patient Name: VERONICA VARGAS MRN: [id number] date: 1965 Sex: M Assigned Patient Location: ER Current Patient Location: .[facility] Accession/Order Number: [id number] Exam Date: 10/06/2025 20:22 Report Date: 10/06/2025 22:33 At the request of: HARI KRAMER Procedure: CT chest w con CT CHEST WITH INTRAVENOUS CONTRAST: CLINICAL HISTORY: trauma COMPARISON: None TECHNIQUE: Spiral images were obtained through the chest following intravenous administration of IV contrast. This CT exam was performed using one or more following dose reduction techniques: Automated exposure control, adjustment of the mA and/or kV according to patient size, or use of iterative reconstruction technique. FINDINGS: Mediastinum:Heart is grossly unremarkable size. Left coronary artery calcifications. There are bronchial wall thickening and mucosal plugging left lower lobar bronchi. No pericardial effusion. No pathologic adenopathy. Lungs:Emphysematous changes. No focal opacity effusion or pneumothorax. Minimal hypoventilatory changes. Abd:Fatty infiltration liver. Soft tissues/Bones: Mild facet arthropathy. Lumbar vertebral heights preserved. CT/CT chest w con IMPRESSION: Negative acute posttraumatic process. Emphysematous changes. Mucosal plugging involving left lower lobe bronchi noted. Impression dictated by: Pedro Mcgovern M.D. 10/06/2025 10:33 PM Dictation Location: [place] [address] Electronically authenticated by: [id number] Y Date: 10/06/2025 22:33
--- NOTE | 2025-10-06 19:28 | CT_ITS ---
The [address] [address] Patient Name: VERONICA VARGAS MRN: [id number] date: 1965 Sex: M Assigned Patient Location: ER Current Patient Location: .[facility] Accession/Order Number: [id number] Exam Date: 10/06/2025 20:22 Report Date: 10/06/2025 22:26 At the request of: HARI KRAMER Procedure: CT head/brain wo con CT BRAIN WITHOUT CONTRAST: CLINICAL HISTORY: trauma COMPARISON: None TECHNIQUE: Contiguous axial unenhanced images were obtained through the brain. This CT exam was performed using one or more following dose reduction techniques: Automated exposure control, adjustment of the mA and/or kV according to patient size, or use of iterative reconstruction technique. FINDINGS: There is no evidence of midline shift, intra or extra-axial fluid collection, hemorrhage or CT evidence of of acute large vascular distribution stroke. Central involutional changes and chronic small vessel ischemic disease. Visualized intraorbital contents appear unremarkable. Mild paranasal sinus mucosal thickening. The surrounding soft tissues are normal. CT/CT head/brain wo con IMPRESSION: NO ACUTE INTRACRANIAL ABNORMALITY. CHRONIC MICROVASCULAR DISEASE AND CENTRAL INVOLUTIONAL CHANGES Impression dictated by: Pedro Mcgovern M.D. 10/06/2025 10:26 PM Dictation Location: [place] [address] Electronically authenticated by: [id number] Y Date: 10/06/2025 22:26
--- NOTE | 2025-10-06 19:28 | CT_ITS ---
The [address] [address] Patient Name: VERONICA VARGAS MRN: [id number] date: 1965 Sex: M Assigned Patient Location: ER Current Patient Location: [facility] Accession/Order Number: [id number] Exam Date: 10/06/2025 20:22 Report Date: 10/06/2025 21:10 At the request of: HARI KRAMER Procedure: CT cervical spine wo con CT CERVICAL SPINE WITHOUT CONTRAST WITH 3D RECONSTRUCTIONS: CLINICAL HISTORY: trauma COMPARISON: None TECHNIQUE: Spiral axial unenhanced images were obtained through the cervical spine. Sagittal, coronal and 3D volume-rendered reconstructions were also reviewed. This CT exam was performed using one or more following dose reduction techniques: Automated exposure control, adjustment of the mA and/or kV according to patient size, or use of iterative reconstruction technique. FINDINGS: Negative acute fracture malalignment. Multilevel anterior syndesmophytosis. [id number] multilevel facet arthropathy. Mild levocurvature. Vascular calcifications noted. Postsurgical changes left clavicle. Lung apices are grossly clear. CT/CT cervical spine wo con IMPRESSION: NO CERVICAL SPINE FRACTURE MULTILEVEL DEGENERATIVE CHANGE. Impression dictated by: Pedro Mcgovern M.D. 10/06/2025 9:10 PM Dictation Location: [place] [address] Electronically authenticated by: [id number] Y Date: 10/06/2025 21:10
--- NOTE | 2025-10-06 19:28 | ECG_ITS ---
The [facility] Test Date: 2025-10-06 Pat Name: VERONICA VARGAS Department: Room: - Gender: Male Card Table Attendant: : 1965 Requested By: [id number] Order Number: [id number] Reading MD: DOUG SINGLETON M.D. Measurements Intervals [place] Rate: 74 P: 69 FL: 150 QRS: 78 QRSD: 82 T: 79 QT: 402 QTc: 429 Interpretive Statements 1100 Sinus rhythm 0102 ARTIFACT PRESENT 9110 normal ECG Compared to ECG 04/07/2023 18:45:13 No significant changes Electronically Signed On 10-06-2025 19:59:34 EST by DOUG SINGLETON M.D.
--- NOTE | 2025-10-06 19:28 | ED_ITS ---
Documented by User: WILLIAMS Peña 10/06/25 22:36 HPI HPI - Fall General Chief Complaint: Fall Stated Complaint: Alcohol FALL Time Seen by Provider: 10/06/25 19:02 Source: other (This patient arrives to the emergency department via EMS services [place] tavern. The patient was reported to be in a restroom and someone reported that he fell in the restroom. No one witnessed the fall. It is unknown whether or not he had loss of consciousness.) Mode of arrival: ambulance Limitations: no limitations History of Present Illness HPI Narrative: The patient arrives via EMS services strong odor of EtOH he does not answer any questions appropriately every question, is answered with F--- you MD complaint: Reports fall Onset (ago): unknown Fall witnessed: Reports no Place fall occurred: Reports other Loss of consciousness: unsure Prolonged down time: Reports unclear Symptoms prior to fall: Reports other Context: Reports alcohol use (Per bystanders, the patient was also taking his pain medications that he was prescribed while he was at the bar) Related Data Previous Rx's ?Medication ?Instructions ?Recorded oxycodone-acetaminophen 5 mg-325 1 tab PO Q8H PRN pain 3 days #9 09/26/25 mg tablet (Percocet) tabs Allergies Allergy/AdvReac Type Severity Reaction Status Date / Time No Known Drug Allergies Allergy Verified 10/06/25 18:55 Opioid HPI Opioid Management Most Recent Pain and Opioid Data: Last Pain Scale 8 09/26/25, 13:12 Ur Phencyclidine Scrn, (NEGATIVE) Negative Today, 22:40 Prescription drug monitoring program results: PDMP reviewed and no issues identified (Patient recently prescribed opiates for an injury) Review of Systems ROS Status of ROS unobtainable due to mental status (Patient unable to cooperate with ROS due to intoxication) PFSH PFSH Medical History Mass of right lung ?R91.8 - Other nonspecific abnormal finding of lung field (ICD-10) COPD (chronic obstructive pulmonary disease) ?J44.9 - Chronic obstructive pulmonary disease, unspecified (ICD-10) Social History Smoking status: Heavy tobacco smoker Little interest or pleasure in doing things: not at all Feeling down, depressed, or hopeless: not at all Exam Constitutional Vital Signs, click to edit/add: Last Vital Signs Temp 97.9 F 10/06/25 18:55 Pulse 78 10/06/25 20:40 Resp 20 10/06/25 20:40 BP 104/75 10/06/25 20:40 Pulse Ox 97 10/06/25 20:40 O2 Del Method Room Air 10/06/25 20:40 Documenting provider has reviewed patient's vital signs: yes Common normals: no apparent distress and alert Exam limitations: altered mental status General appearance: disheveled, frail appearing, appears older than stated age and odor of alcohol detected Nutritional appearance: cachectic, thin and underweight Orientation/consciousness: Yes awake, Yes oriented to person and Yes confused [facility] Common normals: normocephalic, head/scalp atraumatic, hearing grossly normal bilaterally, external ears normal, EACs normal, TMs normal bilaterally, external nose normal, nasal mucous membranes and turbinates normal, moist oral mucous membranes and oropharynx normal Head and scalp: normal to inspection, normocephalic and atraumatic Face and sinus: normal facial exam and sinuses nontender Nose: external nose normal, nares normal, no nasal polyps, nasal mucous membranes and turbinates normal, septum normal and no nasal discharge External ear: external ears normal External auditory canal: EACs normal Tympanic membrane: TMs normal bilaterally Mouth: oral and palatal mucosa normal Throat: posterior oropharynx normal Eye Common normals: PERRL General eye: normal appearance of both eyes Eyelid: eyelids normal Conjunctiva: conjunctiva(e) normal Sclera: sclerae normal Cornea: corneas normal Pupil: PERRL Direct Ophthalmoscopy: normal light reflex Neck & C-Spine Common normals: full ROM, no lymphadenopathy, supple, no meningeal signs, no JVD, thyroid normal and no carotid bruits General: normal visual inspection Thyroid: thyroid normal Cervical spine: cervical ROM normal Lymph Lymphatic: no lymphadenopathy noted Chest Common normals: inspection of chest normal Respiratory Common normals: normal respiratory effort, no retractions and no use of accessory muscles Auscultation: crackles, rales and wheezes scattered wheezes Cardio Common normals: regular rate, regular rhythm, S1 normal heart sound, S2 normal heart sound, no gallops, no clicks, no murmurs, no rub and peripheral pulses 2+ throughout Palpation: normal PMI Rate: regular rate Rhythm: regular rhythm Heart sounds: S1 normal and S2 normal Peripheral pulses: pulses 2+ throughout GI Common normals: Normal to inspection, nondistended, normoactive bowel sounds present, soft to palpation, non-tender, no hepatosplenomegaly, no masses and no bruits Inspection: normal to inspection Auscultation: normoactive bowel sounds Palpation: soft Back & Pelvis Common normals: no CVA tenderness, thoracic and lumbar spine normal to inspection and no thoracic nor lumbar tenderness Thoracic spine/upper back: normal to inspection Lumbar spine/lower back: normal to inspection Pelvis: buttocks normal Extremity Common normals: normal to inspection, full ROM, normal capillary refill, no joint enlargement, no clubbing, cyanosis or edema and no calf tenderness (trace edema all extremities) Neuro Sensorium/orientation: awake and oriented to person (intoxicated) Psych Appearance: disheveled Activity/motor behavior: appropriate eye contact (Patient at times is cooperative, at other times is restless, agitated) Speech: minimal and slow Insight: poor Judgement: poor Course Course Hospital Course: Attempts were made to try to interview the patient. Unfortunately due to alcohol intoxication, patient was unable to cooperate for interviewing. Patient had saline lock established, labs were drawn. Patient was sent to CT scan for curry scan to rule out acute traumatic injuries given that we really do not have a good idea the exact nature of his fall that ended him up here. Full trauma labs have been ordered as well. Alcohol level has come back at 418. Blood type is O+. Patient vital signs have remained stable. Patient's administered a liter normal saline wide open. Lactate elevated at 3.5. Vital Signs Vital signs: Vital Signs Temperature 97.9 F 10/06/25 18:55 Pulse Rate 77 10/06/25 18:55 Respiratory Rate 18 10/06/25 18:55 Blood Pressure 147/91 H 10/06/25 18:55 Pulse Oximetry 95 10/06/25 18:55 Oxygen Delivery Method Room Air 10/06/25 18:55 Temperature 97.9 F 10/06/25 18:55 Pulse Rate 78 10/06/25 20:40 Respiratory Rate 20 10/06/25 20:40 Blood Pressure 104/75 10/06/25 20:40 Pulse Oximetry 97 10/06/25 20:40 Oxygen Delivery Method Room Air 10/06/25 20:40 MDM - Fall Differential Diagnosis Differential diagnosis: Likely syncope (alcohol intoxication, polysubstance abuse, electrolyte abnormality, acute traumatic injury), concussion with loss of consciousness and concussion without loss of consciousness Medical Records Attestation: I reviewed the patient's medical records. Lab Data Attestation: I reviewed the patient's lab results. Labs: Lab Results 10/06/25 10/06/25 Range/Units 19:28 22:40 WBC 8.0 (4.0-11.0) 10^3/uL RBC 5.36 (4.70-6.10) 10^6/uL Hgb 16.7 (14.0-18.0) g/dL Hct 51.2 (42.0-54.0) % MCV 95.5 H (80.0-94.0) fL MCH 31.2 (25.9-34.0) pg MCHC 32.6 (29.9-35.2) g/dL RDW 16.0 H (11.0-15.0) % Plt Count 669 H (150-450) 10^3/uL MPV 9.4 L (9.5-13.5) fL Neut % (Auto) 66.9 (43.0-75.0) % Lymph % (Auto) 19.4 L (20.5-60.0) % [place] % (Auto) 10.1 (1.7-12.0) % Eos % (Auto) 2.3 (0.9-7.0) % Baso % (Auto) 1.0 (0.2-2.0) % Neut # (Auto) 5.3 (1.4-6.5) 10^3/uL Lymph # (Auto) 1.5 (1.2-3.8) 10^3/uL [place] # (Auto) 0.8 (0.3-0.8) 10^3/uL Eos # (Auto) 0.2 (0.0-0.7) 10^3/uL Baso # (Auto) 0.1 (0.0-0.1) 10^3/uL Abs Immat Gran (auto) 0.02 (0.00-0.03) 10^3/uL Imm/Tot Granulo (auto) 0.3 (0.0-0.5) % PT 10.5 (9.0-11.6) sec INR 1.00 APTT 29.1 (22.3-36.2) sec Sodium 141 (136-145) mmol/L Potassium 3.6 (3.5-5.1) mmol/L Chloride 103 (98-107) mmol/L Carbon Dioxide 27.2 (21.0-32.0) mmol/L Anion Gap 14.4 BUN 5.0 L (7.0-18.0) mg/dL Creatinine 0.69 L (0.70-1.30) mg/dL Est GFR ( Amer) >60 (>=60 mL/min/1.73m^2) Est GFR (Non-Af Amer) >60 (>=60 mL/min/1.73m^2) BUN/Creatinine Ratio 7.2 Glucose 99 (74-106) mg/dL Lactate 3.5 H* (0.4-2.0) mmol/L Calcium 9.0 (8.5-10.1) mg/dL Total Bilirubin 0.3 (0.2-1.0) mg/dL AST 34 (15-37) U/L ALT 31 (16-63) U/L Alkaline Phosphatase 108 (46-116) U/L Troponin I High Sens 8.2 (4.0-76.1) pg/mL Total Protein 7.5 (6.4-8.2) g/dL Albumin 3.5 (3.4-5.0) g/dL Globulin 4.0 g/dL Albumin/Globulin Ratio 0.9 Lipase 78.0 H (16.0-77.0) U/L Urine Color Lt. yellow (YELLOW) Urine Clarity Clear (CLEAR) Urine pH 6.0 (5.0-9.0) Ur Specific [place] <=1.005 A (1.005-1.025) Urine Protein Negative (NEG/TRACE) mg/dL Urine Glucose (UA) Negative (NEGATIVE) mg/dL Urine Ketones Trace A (NEGATIVE) mg/dL Urine Occult Blood Negative (NEGATIVE) Urine Nitrite Negative (NEGATIVE) Urine Bilirubin Negative (NEGATIVE) Urine Urobilinogen 0.2 (0.2-1.0) EU/dL Ur Leukocyte Esterase Negative (NEGATIVE) Urine RBC None seen (0-2) #/HPF Urine WBC None seen (NONE SEEN) #/HPF Ur Squamous Epith Cells Rare (NONE/RARE) #/LPF Urine Crystals None seen (None Seen) #/HPF Urine Bacteria None seen (NONE SEEN) #/HPF Urine Casts None seen (NONE SEEN) #/LPF Urine Mucus None seen (NONE SEEN) Ur Culture Indicated? No Urine Opiates Screen Negative (NEGATIVE) Ur Buprenorphine Scrn Negative (NEGATIVE) Ur Oxycodone Screen Negative (NEGATIVE) Urine Methadone Screen Negative (NEGATIVE) Ur Barbiturates Screen Negative (NEGATIVE) U Tricyclic Antidepress Negative (NEGATIVE) Ur Phencyclidine Scrn Negative (NEGATIVE) Ur Amphetamines Screen Negative (NEGATIVE) U Methamphetamines Scrn Negative (NEGATIVE) U Benzodiazepines Scrn Negative (NEGATIVE) Urine Cocaine Screen Negative (NEGATIVE) U Cannabinoids Screen Positive A (NEGATIVE) Ethanol Quant 418 mg/dL Blood Type O Positive Antibody Screen Negative Imaging Data CT scan - head: Radiologist's impression: ITS Impressions Abdomen/Pelvis CT 10/06/25 19:28 IMPRESSION: Motion degradation. No definite acute posttraumatic process identified on this examination. Impression dictated by: Pedro Mcgovern M.D. 10/06/2025 10:30 PM Dictation Location: [facility] Electronically authenticated by: [id number] Y Date: 10/06/2025 22:[address] 10/06/25 19:28 IMPRESSION: NO CERVICAL SPINE FRACTURE MULTILEVEL DEGENERATIVE CHANGE. Impression dictated by: Pedro Mcgovern M.D. 10/06/2025 9:10 PM Dictation Location: [facility] Electronically authenticated by: [id number] Y Date: 10/06/2025 21:[address] 10/06/25 19:28 IMPRESSION: Negative acute posttraumatic process. Emphysematous changes. Mucosal plugging involving left lower lobe bronchi noted. Impression dictated by: Pedro Mcgovern M.D. 10/06/2025 10:33 PM Dictation Location: [facility] Electronically authenticated by: [id number] Y Date: 10/06/2025 22:[address] 10/06/25 19:28 IMPRESSION: NO ACUTE INTRACRANIAL ABNORMALITY. CHRONIC MICROVASCULAR DISEASE AND CENTRAL INVOLUTIONAL CHANGES Impression dictated by: Pedro Mcgovern M.D. 10/06/2025 10:26 PM Dictation Location: [place] [id number] Electronically authenticated by: [id number] Y Date: 10/06/2025 22:26 ECG Data Interpretation: Sinus rhythm heart rate 74, NV interval 150, QRS 82, QT 402, QTc 429, a lot of artifact present Discharge Plan Discharge Chief Complaint: Fall Clinical Impression: Alcoholic intoxication, Fall Patient Disposition: Home, Self-Care Time of Disposition Decision: 23:17 Condition: Good Prescriptions / Home Meds: No Action oxycodone-acetaminophen [Percocet] 5-325 mg tablet 1 tab PO Q8H PRN (Reason: pain) 3 Days Qty: 9 0RF Print Language: Citizen Of [place] Instructions: Alcohol Intoxication (ED), Fall Prevention (ED), Alcohol Use Disorder (ED) Referrals: INES GARCIA [Primary Care Provider, [facility]] - 1 week Discharge Date/Time: 10/06/25 23:37 Documented by User: Adelaida Sewell MD 10/06/25 23:41 HPI HPI - Fall General Chief Complaint: Fall Stated Complaint: Alcohol FALL Time Seen by Provider: 10/06/25 19:02 Source comment: witness Related Data Previous Rx's ?Medication ?Instructions ?Recorded oxycodone-acetaminophen 5 mg-325 1 tab PO Q8H PRN pain 3 days #9 09/26/25 mg tablet (Percocet) tabs Allergies Allergy/AdvReac Type Severity Reaction Status Date / Time No Known Drug Allergies Allergy Verified 10/06/25 18:55 Opioid HPI Opioid Management Most Recent Pain and Opioid Data: Last Pain Scale 8 09/26/25, 13:12 Ur Phencyclidine Scrn, (NEGATIVE) Negative Today, 22:40 PFSH PFSH Medical History Mass of right lung ?R91.8 - Other nonspecific abnormal finding of lung field (ICD-10) COPD (chronic obstructive pulmonary disease) ?J44.9 - Chronic obstructive pulmonary disease, unspecified (ICD-10) Social History Smoking status: Heavy tobacco smoker Little interest or pleasure in doing things: not at all Feeling down, depressed, or hopeless: not at all Exam Constitutional Vital Signs, click to edit/add: Last Vital Signs Temp 97.9 F 10/06/25 18:55 Pulse 78 10/06/25 20:40 Resp 20 10/06/25 20:40 BP 104/75 10/06/25 20:40 Pulse Ox 97 10/06/25 20:40 O2 Del Method Room Air 10/06/25 20:40 Course Course Hospital Course: Attempts were made to try to interview the patient. Unfortunately due to alcohol intoxication, patient was unable to cooperate for interviewing. Patient had saline lock established, labs were drawn. Patient was sent to CT scan for curry scan to rule out acute traumatic injuries given that we really do not have a good idea the exact nature of his fall that ended him up here. Full trauma labs have been ordered as well. Alcohol level has come back at 418. Blood type is O+. Patient vital signs have remained stable. Patient's administered a liter normal saline wide open. Lactate elevated at 3.5. Vital Signs Vital signs: Vital Signs Temperature 97.9 F 10/06/25 18:55 Pulse Rate 77 10/06/25 18:55 Respiratory Rate 18 10/06/25 18:55 Blood Pressure 147/91 H 10/06/25 18:55 Pulse Oximetry 95 10/06/25 18:55 Oxygen Delivery Method Room Air 10/06/25 18:55 Temperature 97.9 F 10/06/25 18:55 Pulse Rate 78 10/06/25 20:40 Respiratory Rate 20 10/06/25 20:40 Blood Pressure 104/75 10/06/25 20:40 Pulse Oximetry 97 10/06/25 20:40 Oxygen Delivery Method Room Air 10/06/25 20:40 MDM - Fall MDM Narrative Medical decision making narrative: This 60-year-old male was seen and evaluated in conjunction with the physician treasury assistant. He was brought to the emergency department by EMS after he was found in a local bar establishment in the bathroom on the floor. The circumstances leading to his fall were unclear at the time of his arrival. The patient was intoxicated but moving all extremities. His GCS was 15. There was no gross sign of any injury. He does have his a sling on his right arm status post humerus fracture. His speech was slurred. He was irritable upon arrival. An EKG was ordered upon arrival which was a sinus rhythm at 74 bpm with no acute findings. An IV was placed and he was medicated with IV fluids. Routine labs were ordered and are reviewed. He has a normal white count and stable hemoglobin. Electrolyte panel is normal. Function test and lipase are normal. Alcohol is elevated at 418. Lactic acid is elevated at 3.5 likely related to his alcohol use. There was no shortening or external rotation of either lower extremities. Due to the uncertain nature of his injury a CT scan of the head, cervical spine, chest abdomen pelvis was ordered. There were no acute findings on the studies. The patient's son daughter did call while he was being evaluated stating that they would pick him up if he was able to be discharged. At 1 point he did wake up and started to become agitated and irritable and we were concerned for an additional fall and he was given 5 mg of IV Valium. After the CT scans resulted his family was called and picked him up. He was ambulatory with a steady gait at the time of discharge. He was encouraged to stop drinking in excess and consider drinking in moderation or discontinuing his alcohol use altogether in conjunction with his family physician or other alcohol detox programs. Lab Data Labs: Lab Results 10/06/25 10/06/25 Range/Units 19:28 22:40 WBC 8.0 (4.0-11.0) 10^3/uL RBC 5.36 (4.70-6.10) 10^6/uL Hgb 16.7 (14.0-18.0) g/dL Hct 51.2 (42.0-54.0) % MCV 95.5 H (80.0-94.0) fL MCH 31.2 (25.9-34.0) pg MCHC 32.6 (29.9-35.2) g/dL RDW 16.0 H (11.0-15.0) % Plt Count 669 H (150-450) 10^3/uL MPV 9.4 L (9.5-13.5) fL Neut % (Auto) 66.9 (43.0-75.0) % Lymph % (Auto) 19.4 L (20.5-60.0) % [place] % (Auto) 10.1 (1.7-12.0) % Eos % (Auto) 2.3 (0.9-7.0) % Baso % (Auto) 1.0 (0.2-2.0) % Neut # (Auto) 5.3 (1.4-6.5) 10^3/uL Lymph # (Auto) 1.5 (1.2-3.8) 10^3/uL [place] # (Auto) 0.8 (0.3-0.8) 10^3/uL Eos # (Auto) 0.2 (0.0-0.7) 10^3/uL Baso # (Auto) 0.1 (0.0-0.1) 10^3/uL Abs Immat Gran (auto) 0.02 (0.00-0.03) 10^3/uL Imm/Tot Granulo (auto) 0.3 (0.0-0.5) % PT 10.5 (9.0-11.6) sec INR 1.00 APTT 29.1 (22.3-36.2) sec Sodium 141 (136-145) mmol/L Potassium 3.6 (3.5-5.1) mmol/L Chloride 103 (98-107) mmol/L Carbon Dioxide 27.2 (21.0-32.0) mmol/L Anion Gap 14.4 BUN 5.0 L (7.0-18.0) mg/dL Creatinine 0.69 L (0.70-1.30) mg/dL Est GFR ( Amer) >60 (>=60 mL/min/1.73m^2) Est GFR (Non-Af Amer) >60 (>=60 mL/min/1.73m^2) BUN/Creatinine Ratio 7.2 Glucose 99 (74-106) mg/dL Lactate 3.5 H* (0.4-2.0) mmol/L Calcium 9.0 (8.5-10.1) mg/dL Total Bilirubin 0.3 (0.2-1.0) mg/dL AST 34 (15-37) U/L ALT 31 (16-63) U/L Alkaline Phosphatase 108 (46-116) U/L Troponin I High Sens 8.2 (4.0-76.1) pg/mL Total Protein 7.5 (6.4-8.2) g/dL Albumin 3.5 (3.4-5.0) g/dL Globulin 4.0 g/dL Albumin/Globulin Ratio 0.9 Lipase 78.0 H (16.0-77.0) U/L Urine Color Lt. yellow (YELLOW) Urine Clarity Clear (CLEAR) Urine pH 6.0 (5.0-9.0) Ur Specific [place] <=1.005 A (1.005-1.025) Urine Protein Negative (NEG/TRACE) mg/dL Urine Glucose (UA) Negative (NEGATIVE) mg/dL Urine Ketones Trace A (NEGATIVE) mg/dL Urine Occult Blood Negative (NEGATIVE) Urine Nitrite Negative (NEGATIVE) Urine Bilirubin Negative (NEGATIVE) Urine Urobilinogen 0.2 (0.2-1.0) EU/dL Ur Leukocyte Esterase Negative (NEGATIVE) Urine RBC None seen (0-2) #/HPF Urine WBC None seen (NONE SEEN) #/HPF Ur Squamous Epith Cells Rare (NONE/RARE) #/LPF Urine Crystals None seen (None Seen) #/HPF Urine Bacteria None seen (NONE SEEN) #/HPF Urine Casts None seen (NONE SEEN) #/LPF Urine Mucus None seen (NONE SEEN) Ur Culture Indicated? No Urine Opiates Screen Negative (NEGATIVE) Ur Buprenorphine Scrn Negative (NEGATIVE) Ur Oxycodone Screen Negative (NEGATIVE) Urine Methadone Screen Negative (NEGATIVE) Ur Barbiturates Screen Negative (NEGATIVE) U Tricyclic Antidepress Negative (NEGATIVE) Ur Phencyclidine Scrn Negative (NEGATIVE) Ur Amphetamines Screen Negative (NEGATIVE) U Methamphetamines Scrn Negative (NEGATIVE) U Benzodiazepines Scrn Negative (NEGATIVE) Urine Cocaine Screen Negative (NEGATIVE) U Cannabinoids Screen Positive A (NEGATIVE) Ethanol Quant 418 mg/dL Blood Type O Positive Antibody Screen Negative Imaging Data CT scan - head: Radiologist's impression: ITS Impressions Abdomen/Pelvis CT 10/06/25 19:28 IMPRESSION: Motion degradation. No definite acute posttraumatic process identified on this examination. Impression dictated by: Pedro Mcgovern M.D. 10/06/2025 10:30 PM Dictation Location: [facility] Electronically authenticated by: [id number] Y Date: 10/06/2025 22:[address] 10/06/25 19:28 IMPRESSION: NO CERVICAL SPINE FRACTURE MULTILEVEL DEGENERATIVE CHANGE. Impression dictated by: Pedro Mcgovern M.D. 10/06/2025 9:10 PM Dictation Location: [facility] Electronically authenticated by: [id number] Y Date: 10/06/2025 21:[address] 10/06/25 19:28 IMPRESSION: Negative acute posttraumatic process. Emphysematous changes. Mucosal plugging involving left lower lobe bronchi noted. Impression dictated by: Pedro Mcgovern M.D. 10/06/2025 10:33 PM Dictation Location: [facility] Electronically authenticated by: [id number] Y Date: 10/06/2025 22:[address] 10/06/25 19:28 IMPRESSION: NO ACUTE INTRACRANIAL ABNORMALITY. CHRONIC MICROVASCULAR DISEASE AND CENTRAL INVOLUTIONAL CHANGES Impression dictated by: Pedro Mcgovern M.D. 10/06/2025 10:26 PM Dictation Location: [facility] Electronically authenticated by: [id number] Y Date: 10/06/2025 22:26 ECG Data Attestation: I personally reviewed and interpreted this ECG as follows: (Sinus rhythm at 74 bpm with a normal axis, interpretation limited by patient movement, no acute ST segment elevation or T wave inversion appreciated) Discharge Plan Discharge Chief Complaint: Fall Clinical Impression: Alcoholic intoxication, Fall Patient Disposition: Home, Self-Care Time of Disposition Decision: 23:17 Condition: Good Prescriptions / Home Meds: No Action oxycodone-acetaminophen [Percocet] 5-325 mg tablet 1 tab PO Q8H PRN (Reason: pain) 3 Days Qty: 9 0RF Print Language: Citizen Of [place] Instructions: Alcohol Intoxication (ED), Fall Prevention (ED), Alcohol Use Disorder (ED) Referrals: INES GARCIA [Primary Care Provider, [facility]] - 1 week Discharge Date/Time: 10/06/25 23:37
[2025-10-06 19:38] LABS: Hematocrit 51.2 % (42.0-54.0); Hemoglobin 16.7 g/dL (14.0-18.0); Immature Granulocytes Abs Auto 0.02 10^3/uL (0.00-0.03); Immature Granulocytes Pct Auto 0.3 % (0.0-0.5); Lymphocytes Absolute Auto 1.5 10^3/uL (1.2-3.8); Mean Corpuscular HGB Conc 32.6 g/dL (29.9-35.2); Mean Corpuscular Hemoglobin 31.2 pg (25.9-34.0); Mean Corpuscular Volume 95.5 fL (80.0-94.0); Platelet Count 669 10^3/uL (150-450); Red Blood Count 5.36 10^6/uL (4.70-6.10); White Blood Count 8.0 10^3/uL (4.0-11.0)
[2025-10-06 19:50] LABS: INR 1.00; Partial Thromboplastin Time 29.1 sec (22.3-36.2); Prothrombin Time 10.5 sec (9.0-11.6)
--- OUTSIDE RECORDS SUMMARY | 2025-10-06 19:57 | XMS_ITS | Clinical Summary ---
Author Organization [facility] Address [address] [place] [address] Care Team Providers Care Licensing Court Magistrate Name Role Phone Unavailable Primary Care Provider Unavailabl e Social History Tobacco UseTypesPacks/DayYears UsedDateSmoking Tobacco: Never AssessedSex and Gender InformationValueDate RecordedSex Assigned at BirthNot on fileLegal Sex Male01/16/2023 11:33 PM EDTGender IdentityNot on fileSexual OrientationNot on file Last Filed Vital Signs Vital SignReadingTime TakenCommentsBlood Pressure--Pulse--Temperature-- Respiratory Rate--Oxygen Saturation--Inhaled Oxygen Concentration--Qdlutv65.2 kg (126 lb)01/09/2022 12:00 PM XLBGsgayl372.2 cm (5' 7 )01/09/2022 12:00 PM ESTBody Mass Index19.7301/09/2022 12:00 PM EST Plan of Treatment Not on file
--- OUTSIDE RECORDS SUMMARY | 2025-10-06 19:57 | XMS_ITS | Patient Health Record ---
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)Active confirmedProblemCentrilobular emphysema (42079304)Centrilobular emphysema (J43.2)ActiveconfirmedProblemInterferon gamma assay positive (775616185) Nonspecific reaction to cell mediated immunity measurement of gamma interferon antigen response without active tuberculosis (R76.12)ActiveconfirmedProblem Solitary pulmonary nodule (044572966)Solitary pulmonary nodule (R91.1)Active confirmedProblemLong-term current use of inhaled steroid (610966041)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 Ordered LDCT. 86 pack-year history. ProblemAlcoholism (1562263)Alcoholism (F10.20)ActiveconfirmedExcessive EtOH intake, 12+ beers/day and 6-7 shots of whiskey/day.ProblemMicrocytic anemia (757059118)Microcytic anemia (D50.9)ActiveconfirmedProblemAlcohol intoxication (09587901)Alcohol intoxication (F10.129)ActiveconfirmedProblemAllergic rhinitis (19834571)Allergic rhinitis, unspecified seasonality, unspecified trigger (J30.9)ActiveconfirmedRelated to [...] Date [employer] ADV PLAN [address] [place] [address] [id number] Chente [place] Self - patient is the insured 3 Medical (General) History Medical History History ICD Code Degenerative disc disease, lumbar M51.36 Spinal stenosis M48.00 Microcytic anemia D50.9 Thrombocytosis D75.839 Sigmoid diverticulosis K57.30 Peripheral eosinophilia D72.19 Centrilobular emphysema J43.2 Solitary pulmonary nodule R91.1 halfway (current) use of inhaled stero ids Z79.51 Surgical History Surgery Date(Month/Year) ankle surgery
[2025-10-06 19:58] LABS: Alanine Aminotransferase 31 U/L (16-63); Albumin Globulin Ratio 0.9; Albumin Level 3.5 g/dL (3.4-5.0); Alkaline Phosphatase 108 U/L (46-116); Anion Gap 14.4; Aspartate Amino Transferase 34 U/L (15-37); Blood Urea Nitrogen 5.0 mg/dL (7.0-18.0); Calcium 9.0 mg/dL (8.5-10.1); Carbon Dioxide 27.2 mmol/L (21.0-32.0); Chloride 103 mmol/L (98-107); Estimated GFR (African America >60 (>=60 mL/min/1.73m^2); Estimated GFR (Non-African Ame >60 (>=60 mL/min/1.73m^2); Globulin 4.0 g/dL; Glucose 99 mg/dL (74-106); Lipase 78.0 U/L (16.0-77.0); Potassium 3.6 mmol/L (3.5-5.1); Sodium 141 mmol/L (136-145); Total Protein 7.5 g/dL (6.4-8.2)
--- OUTSIDE RECORDS SUMMARY | 2025-10-06 19:58 | XMS_ITS | Patient Health Record ---
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 Name Role Phone House Ruddy HINTON Primary Care Provider Wilder Zabalaen Unavailable [phone] Allergies No Known Allergies Reason For Referral [...] in the past year?Declined to specify (0 point)Abnaqp3UnfcwffgducmlaOjccxklrYknzdgw Control (Standard) Question Answer Notes Tobacco use: Current smoker Problems Problem Type SNOMED Code ICD Code Onset Dates Problem Status W/U Status Risk Notes Problem Closed fracture of distal end of left radius, unspecified fracture morphology, initial encounter (S52.502A)Activeconfirmed Plan Of Treatment Pending Test Test Name Order Date SCC- WRIST 3 VIEW LEFT [id number] 07/29/2024 Insurance Providers Payer Name Payer Address Payer Phone Subscriber Number Group Number Insured Name Patient Relationship to Insured Coverage Start Date Coverage End Date Medicare [employer] [address] [place] [address] [id number] AARON VARGASelf - patient is the insured Medical (General) History Medical History History ICD Code Asthma/COPD Respiratory problems:Lung DiseaseDepressionMental Illness:AnxietySurgical History Surgery Date(Month/Year) Lt shoulder Rt ankle
[2025-10-06 20:05] LABS: Lactate/Lactic Acid 3.5 mmol/L (0.4-2.0)
[2025-10-06] MEDS: 0.9 % SODIUM CHLORIDE 1,000 ML 999 ML IV (20:41)
[2025-10-06] MEDS: DIAZEPAM 10 MG/2 ML SYRINGE 5 MG IV (21:24)
[2025-10-06 22:50] LABS: Glucose Urine UA NEGATIVE (NEGATIVE)
[2025-10-06 22:55] LABS: Cast Seen? NONE SEEN #/LPF (NONE SEEN); Crystals Seen? None Seen #/HPF (None Seen)
[2025-10-06 22:56] LABS: Urine Culture Indicated NO
[2025-10-06 23:01] LABS: Cannabinoid Screen Urine POSITIVE (NEGATIVE); Methamphetamines Screen Urine NEGATIVE (NEGATIVE); Tricyclic Antidepressant Urine NEGATIVE (NEGATIVE)
== END 2025-10-06 23:37 | disposition home or self-care (01) ==
PROVIDERS: Physician Assistant; Emergency Provider Emergency Medicine; PCP Family Medicine
DX: Z04.3 Encounter for examination and observation following other accident (principal); F10.129 Alcohol abuse with intoxication, unspecified; Y90.8 Blood alcohol level of 240 mg/100 ml or more; W18.39XA Other fall on same level, initial encounter; Y92.59 Other trade areas as the place of occurrence of the external cause; Z79.899 Other long term (current) drug therapy
CPT/HCPCS: 36415; 70450; 71260; 72125; 74177; 76376; 80053; 80307; 80320; 81001; 83605; 83690; 84484; 85025; 85610; 85730; 86850; 86900; 86901; 93005; 96374; 99285; J3360; Q9967